=== PATIENT | male | born 1985 | race Caucasian/White ===

== ENCOUNTER 2018-02-14 12:55 | Emergency (ER) | payer BC ==
[2018-02-14 14:41] LABS: Absolute Lymphocytes (CBC) 0.9 K/uL (0.7-4.9); Absolute Monocytes 0.7 K/uL (0.1-1.3); Absolute Neutrophil 12.3 K/uL (1.8-8.0); Basophils % 0.3 % (0-1.3); Hematocrit 45.1 % (39.6-49.0); Lymphocytes % 6.4 % (15.3-44.8); MCH 29.4 pg (27.0-35.0); MCV 81.5 fL (80-100); MPV 8.5 fL (7.6-11.3); Monocytes % 5.1 % (3.3-12.3); RBC Red Blood Cell Count 5.54 M/uL (4.33-5.43)
[2018-02-14 14:42] LABS: Protime INR 1.34
[2018-02-14] MEDS ORDERED: NA CHLORIDE 0.9% 1,000 ML ONE ×2 (14:50→16:36)
[2018-02-14 15:19] LABS: ALT/SGPT 52 U/L (12-78); AST/SGOT 43 U/L (15-37); Albumin 4.4 g/dL (3.4-5.0); Alkaline Phosphatase 54 U/L (45-117); BUN Blood Urea Nitrogen 15 mg/dL (7-18); Bicarbonate 24 mmol/L (21-32); Bilirubin Direct 0.2 mg/dL (0-0.2); Glucose Level 94 mg/dL (74-106); Lipase 110 U/L (73-393); NT PRO-BNP 32 pg/mL (<125); Protein, Total 8.9 g/dL (6.4-8.2); Sodium Level 137 mmol/L (136-145); Troponin (Emerg Dept Use Only) < 0.02 ng/mL (0.0-0.045)
[2018-02-14] MEDS ORDERED: CEFTRIAXONE/SWI 1gm 1 GM/10 ML SYR ONE (15:24)
[2018-02-14] MEDS ORDERED: AZITHROMYCIN 250 MG TAB ONE (15:24)
[2018-02-14 15:32] LABS: Blood Morphology Comment NOT SEEN (NOT SEEN); Platelet Estimate ADEQ; Urine White Blood Cell Casts OK
[2018-02-14 15:36] LABS: Urine Blood NEGATIVE (NEG); Urine Glucose NEGATIVE (NEG); Urine Protein 1+ (NEG); Urine Specific Gravity 1.015 (1.005-1.030); Urine pH >8.5 (5.0-7.0)
--- NOTE | 2018-02-14 16:26 | RAD REPORT ---
EXAM DESCRIPTION: CT - Angio Aorta For Dissection - 02/14/2018 4:08 pm CLINICAL HISTORY: Left-sided chest pain COMPARISON: Chest films same date TECHNIQUE: Dynamically enhanced 3 mm thick images of the chest, abdomen, and upper pelvis were obtai gualberto during administration of approximately 150mL Isovue 370 IV contrast. Sagittal and coronal reconst ruction images were generated using MIP and reviewed. Exam utilizes a protocol to evaluate entire cou rse of the aorta. All CT scans are performed using dose optimization technique as appropriate and may include automated exposure control or mA/KV adjustment according to patient size. FINDINGS: Aorta is normal in diameter with no dissection or other acute aortic findings. Reconstruct ion images show no significant findings. Pulmonary arteries are normal as well. No cardiomegaly, pericardial thickening or pericardial effusio n. No mass or infiltrate in the lung parenchyma. No pleural thickening, pleural effusion or pneumothorax . No abnormal mediastinal or hilar mass or lymphadenopathy seen. No chest wall mass or abnormal axillar y lymphadenopathy. Celiac, SMA and renal arteries show no suspicious findings. Solid abdominal viscera and bowel show no significant findings. No mass or abnormal lymphadenopathy. No free air, free fluid or inflammatory stranding. No urinary bladder abnormality. Liver shows fatty infiltration. 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 Patient has prominent, irregular Schmorl's nodes and endplate changes T8 -L2. Findings are not suspicious for discitis or osteomyelitis. IMPRESSION: Negative CT scan of the aorta. No other acute finding seen. Nonacute findings in the body of the report.
--- NOTE | 2018-02-14 16:53 | ER ---
Nurse's Notes [facility] Name: Miguel Montes Age: 32 yrs Sex: Male : 1985 Arrival Date: 02/14/2018 Time: 12:58 Bed 27 Private MD: Clay Arnett Diagnosis: Fever, unspecified;Chest pain, unspecified;Dyspnea;Acute upper respiratory infection, unspecified Presentation: 02/14 13:20 Presenting complaint: Patient states: left-sided chest pain and left arm tingling that aa5 began last night. Pt appears uncomfortable in triage. Pt reports being seen at urgent care and sent here, reports flu swab was negative. Transition of care: patient was not received from another setting of care. Onset of symptoms was January 2018. Risk Assessment: Do you want to hurt yourself or someone else? Patient reports no desire to harm self or others. Care prior to arrival: None. 13:20 Method Of Arrival: Ambulatory aa5 13:20 Acuity: NAT 3 aa5 14:33 Initial Sepsis Screen: Does the patient meet any 2 criteria? No. Patient's initial tl3 sepsis screen is negative. Does the patient have a suspected source of infection? No. Patient's initial sepsis screen is negative. Triage Assessment: 14:33 General: Appears uncomfortable. tl3 Historical: - Allergies: 13:22 No Known Allergies; aa5 - Home Meds: 13:22 None [Active]; aa5 - PMHx: 13:22 None; aa5 - PSHx: 13:22 ear; aa5 - Immunization history:: Adult Immunizations up to date. - Ebola Screening: : No symptoms or risks identified at this time. - Social history:: Smoking status: unknown. - Family history:: not pertinent. Screenin:00 Abuse screen: Denies threats or abuse. Nutritional screening: No deficits noted. tl3 Tuberculosis screening: No symptoms or risk factors identified. Fall Risk None identified. Assessment: 14:00 General: Appears distressed, uncomfortable, well groomed, well developed, well tl3 nourished, Behavior is cooperative, appropriate for age. Pain: Complains of pain in anterior aspect of right lateral abdomen, posterior aspect of right lateral abdomen, left upper quadrant and left lower quadrant Pain radiates to back Pain began 2 am. Neuro: Level of Consciousness is awake, alert, obeys commands. Cardiovascular: Heart tones S1 S2 Patient's skin is warm and dry. Respiratory: Airway is patent Respiratory effort is even, unlabored, Respiratory pattern is regular, symmetrical, Breath sounds are clear bilaterally. GI: Abdomen is flat, Bowel sounds present X 4 quads. Abdomen is tender to palpation in right upper quadrant and left upper quadrant. : No signs and/or symptoms were reported regarding the genitourinary system. EENT: No signs and/or symptoms were reported regarding the EENT system. Derm: No signs and/or symptoms reported regarding the dermatologic system. 15:26 Reassessment: Patient appears in no apparent distress at this time. No changes from tl3 previously documented assessment. Patient and/or family updated on plan of care and expected duration. Pain level reassessed. Patient is alert, oriented x 3, equal unlabored respirations, skin warm/dry/pink. 18:47 Reassessment: Patient appears in no apparent distress at this time. No changes from tl3 previously documented assessment. Patient and/or family updated on plan of care and expected duration. Pain level reassessed. Patient is alert, oriented x 3, equal unlabored respirations, skin warm/dry/pink. pt had temp on discharge, Dr Bull notified, orders recieved. Vital Signs: 13:22 BP 106 / 85; Pulse 115; Resp 20 S; Temp 99.5(O); Pulse Ox 100% on R/A; aa5 14:00 BP 120 / 71; Pulse 111; Resp 18; Pulse Ox 100% ; tl3 15:26 BP 115 / 76; Pulse 107; Resp 18; Pulse Ox 98% ; tl3 18:47 BP 112 / 77; Pulse 115; Resp 18; Temp 102.6; Pulse Ox 99% on R/A; tl3 ED Course: 12:58 Patient arrived in ED. rg4 12:59 Clay Arnett MD is Private Physician. rg4 13:20 Arm band placed on. aa5 13:21 Triage completed. aa5 13:26 Pedrito Bull MD is Attending Physician. jose raul 13:38 Juliette Rocha, LUCY is Primary Nurse. tl3 14:20 Initial lab(s) drawn, by tx, sent to lab. First set of blood cultures drawn by me, tl3 Second set of blood cultures drawn by me. Patient maintains SpO2 saturation greater than 95% on room air. 14:29 XRAY Chest (1 view) Sent. tl3 14:34 Patient has correct armband on for positive identification. nurse monitoring on. Pulse tl3 ox on. NIBP on. 14:34 No provider procedures requiring assistance completed. Inserted saline lock: 20 gauge tl3 in right antecubital area, using aseptic technique. Blood collected. 14:41 X-ray completed. Portable x-ray completed in exam room. Patient tolerated procedure ag1 well. 14:44 XRAY Chest (1 view) In Process Unspecified. EDMS 15:06 Radiology exam delayed due to lab results not completed at this time. (BUN/Creatinine). vr 15:[address] nj 16:09 CT Aorta for Dissection In Process Unspecified. EDMS 16:51 Clay Arnett MD is Referral Physician. jose raul 17:27 Repeat lab(s) drawn. by me. tm3 18:18 US Abdomen Limited In Process Unspecified. EDMS 18:47 IV discontinued, intact, bleeding controlled, No redness/swelling at site. Pressure tl3 dressing applied. Administered Medications: 14:37 Drug: NS 0.9% 1000 ml Route: IV; Rate: 1 bolus; Site: right antecubital; Delivery: tl3 Primary tubing; 16:29 Follow up: IV Status: Completed infusion; IV Intake: 1000ml tl3 15:09 Drug: Rocephin - (cefTRIAXone) 1 grams Route: IVPB; Infused Over: 5 mins; Site: right tl3 forearm; Delivery: Primary tubing; 15:24 Follow up: IV Status: Completed infusion; IV Intake: 20ml tl3 15:09 Drug: Zithromax 500 mg Route: PO; tl3 15:25 Follow up: Response: No adverse reaction tl3 16:29 Drug: NS 0.9% 1000 ml Route: IV; Rate: 125 ml/hr; Site: right forearm; Delivery: tl3 Primary tubing; 18:20 Follow up: IV Status: Completed infusion; IV Intake: 250ml tl3 17:37 Drug: NS 0.9% 1000 ml Route: IV; Rate: 1 bolus; Site: right forearm; Delivery: Primary tl3 tubing; 18:19 Follow up: IV Status: Completed infusion; IV Intake: 1000ml tl3 17:48 Drug: Pepcid 20 mg Route: IVP; Infused Over: 2 mins; Site: right forearm; tl3 18:19 Follow up: Response: No adverse reaction tl3 17:48 Drug: Aspirin 81 mg Route: PO; tl3 18:19 Follow up: Response: No adverse reaction tl3 18:49 Drug: Motrin 800 mg Route: PO; tl3 18:49 Follow up: Response: Medication administered at discharge. tl3 18:50 Not Given (Patient Refused): Tamiflu 75 mg PO once tl3 Intake: 15:24 IV: 20ml; Total: 20ml. tl3 16:29 IV: 1000ml; Total: 1020ml. tl3 18:19 IV: 1000ml; Total: 2020ml. tl3 18:20 IV: 250ml; Total: 2270ml. tl3 Outcome: 16:52 Discharge ordered by . jose raul 18:54 Discharged to home ambulatory. tl3 18:54 Condition: stable 18:54 Discharge instructions given to patient, family, Instructed on discharge instructions, follow up and referral plans. medication usage, Demonstrated understanding of instructions, follow-up care, medications, Prescriptions given X 4. 18:54 Patient left the ED. tl3 Signatures: Dispatcher [employer] EDMS Issa Joe tm3 Pedrito Bull MD MD cha Calderon, Audri, RN RN [id number] Nori Merchant Ashley ag1 Garcia, Rubi rg4 Pelon Marks Tammy, RN RN tl3
--- NOTE | 2018-02-14 16:53 | EDPHYS ---
Physician Documentation [facility] Name: Miguel Montes Age: 32 yrs Sex: Male : 1985 Arrival Date: 02/14/2018 Time: 12:58 Bed 27 Private MD: Clay Arnett ED Physician Pedrito Bull HPI: 02/14 14:39 This 32 yrs old Male presents to ER via Ambulatory with complaints of Chest jose raul Pain, Breathing Difficulty. 14:39 This 32 yrs old Male presents to ER via Ambulatory with complaints of Chest jose raul Pain, Breathing Difficulty. 14:39 The patient or guardian reports chest pain that is located primarily in the substernal jose raul area, anterior chest wall. The patient or guardian reports chest pain that is located primarily in the epigastric area. The pain does not radiate. Associated signs and symptoms: The patient has no apparent associated signs or symptoms. The chest pain is described as sharp. Duration: The patient or guardian reports a single episode, that is still ongoing, but improving. Modifying factors: The symptoms are alleviated by nothing. the symptoms are aggravated by nothing. Severity of pain: At its worst the pain was mild in the emergency department the pain is unchanged. The patient has not experienced similar symptoms in the past. Historical: - Allergies: 13:22 No Known Allergies; aa5 - Home Meds: 13:22 None [Active]; aa5 - PMHx: 13:22 None; aa5 - PSHx: 13:22 ear; aa5 - Immunization history:: Adult Immunizations up to date. - Ebola Screening: : No symptoms or risks identified at this time. - Social history:: Smoking status: unknown. - Family history:: not pertinent. ROS: 14:39 Constitutional: Negative for fever, chills, and weight loss, Eyes: Negative for injury, jose raul pain, redness, and discharge, ENT: Negative for injury, pain, and discharge, Neck: Negative for injury, pain, and swelling, Respiratory: Negative for shortness of breath, cough, wheezing, and pleuritic chest pain, Back: Negative for injury and pain, : Negative for injury, bleeding, discharge, and swelling, MS/Extremity: Negative for injury and deformity, Skin: Negative for injury, rash, and discoloration, Neuro: Negative for headache, weakness, numbness, tingling, and seizure. 14:39 Cardiovascular: Positive for chest pain. 14:39 Abdomen/GI: Positive for abdominal pain, of the epigastric area, right upper quadrant and left upper quadrant. Exam: 14:39 Constitutional: This is a well developed, well nourished patient who is awake, alert, jose raul and in no acute distress. Head/Face: Normocephalic, atraumatic. Eyes: Pupils equal round and reactive to light, extra-ocular motions intact. Lids and lashes normal. Conjunctiva and sclera are non-icteric and not injected. Cornea within normal limits. Periorbital areas with no swelling, redness, or edema. ENT: Nares patent. No nasal discharge, no septal abnormalities noted. Tympanic membranes are normal and external auditory canals are clear. Oropharynx with no redness, swelling, or masses, exudates, or evidence of obstruction, uvula midline. Mucous membranes moist. Neck: Trachea midline, no thyromegaly or masses palpated, and no cervical lymphadenopathy. Supple, full range of motion without nuchal rigidity, or vertebral point tenderness. No Meningismus. Chest/axilla: Normal chest wall appearance and motion. Nontender with no deformity. No lesions are appreciated. Cardiovascular: Regular rate and rhythm with a normal S1 and S2. No gallops, murmurs, or rubs. Normal PMI, no JVD. No pulse deficits. Respiratory: Lungs have equal breath sounds bilaterally, clear to auscultation and percussion. No rales, rhonchi or wheezes noted. No increased work of breathing, no retractions or nasal flaring. Back: No spinal tenderness. No costovertebral tenderness. Full range of motion. Male : Normal genitalia with no discharge or lesions. Skin: Warm, dry with normal turgor. Normal color with no rashes, no lesions, and no evidence of cellulitis. MS/ Extremity: Pulses equal, no cyanosis. Neurovascular intact. Full, normal range of motion. Neuro: Awake and alert, GCS 15, oriented to person, place, time, and situation. Cranial nerves II-XII grossly intact. Motor strength 5/5 in all extremities. Sensory grossly intact. Cerebellar exam normal. Normal gait. Psych: Awake, alert, with orientation to person, place and time. Behavior, mood, and affect are within normal limits. 14:39 Abdomen/GI: Inspection: abdomen appears normal, Bowel sounds: normal, Palpation: mild abdominal tenderness, in the epigastric area, right upper quadrant and left upper quadrant. 18:46 Neck: ROM/movement: Meningeal signs: are not present, Kernig's sign is negative, jose raul Brudzinski's sign is negative, nuchal rigidity, is not appreciated. Vital Signs: 13:22 BP 106 / 85; Pulse 115; Resp 20 S; Temp 99.5(O); Pulse Ox 100% on R/A; aa5 14:00 BP 120 / 71; Pulse 111; Resp 18; Pulse Ox 100% ; tl3 15:26 BP 115 / 76; Pulse 107; Resp 18; Pulse Ox 98% ; tl3 18:47 BP 112 / 77; Pulse 115; Resp 18; Temp 102.6; Pulse Ox 99% on R/A; tl3 MDM: 13:26 Patient medically screened. [facility] 14:39 Data reviewed: vital signs, nurses notes, lab test result(s), EKG, radiologic studies, [facility] plain films. 02/14 13:32 Order name: Basic Metabolic Panel; Complete Time: 15:29 [facility] 02/14 13:32 Order name: CBC with Diff; Complete Time: 15:33 [facility] 02/14 13:32 Order name: LFT's; Complete Time: 15:29 [facility] 02/14 13:32 Order name: Magnesium; Complete Time: 15:29 [facility] 02/14 13:32 Order name: NT PRO-BNP; Complete Time: 15:29 [facility] 02/14 13:32 Order name: PT-INR; Complete Time: 14:55 [facility] 02/14 13:32 Order name: Troponin (emerg Dept Use Only); Complete Time: 15:29 [facility] 02/14 13:32 Order name: Influenza Screen (a \T\ B); Complete Time: 15:29 [facility] 02/14 13:32 Order name: Blood Culture Adult (2) [facility] 02/14 13:32 Order name: Urine Culture [facility] 02/14 13:32 Order name: Procalcitonin; Complete Time: 15:29 [facility] 02/14 15:05 Order name: Urine Dipstick--Ancillary (enter results); Complete Time: 16:49 eb 02/14 15:13 Order name: Lipase; Complete Time: 15:29 EDMS 02/14 13:32 Order name: XRAY Chest (1 view); Complete Time: 18:42 [facility] 02/14 13:32 Order name: EKG; Complete Time: 13:33 [facility] 02/14 13:32 Order name: Cardiac monitoring; Complete Time: 14:29 [facility] 02/14 14:56 Order name: CT Aorta for Dissection; Complete Time: 16:49 [facility] 02/14 15:16 Order name: CBC Smear Scan; Complete Time: 15:33 [facility] 02/14 16:52 Order name: Troponin (emerg Dept Use Only); Complete Time: 18:42 [facility] 02/14 17:16 Order name: US Abdomen Limited; Complete Time: 18:42 [facility] 02/14 13:32 Order name: EKG - Nurse/Tech; Complete Time: 14:29 [facility] 02/14 13:32 Order name: IV Saline Lock; Complete Time: 14:30 [facility] 02/14 13:32 Order name: Labs collected and sent; Complete Time: 14:30 [facility] 02/14 13:32 Order name: O2 Per Protocol; Complete Time: 14:30 [facility] 02/14 13:32 Order name: O2 Sat Monitoring; Complete Time: 14:30 [facility] 02/14 13:32 Order name: Urine Dipstick-Ancillary (obtain specimen); Complete Time: 16:31 [facility] Administered Medications: 14:37 Drug: NS 0.9% 1000 ml Route: IV; Rate: 1 bolus; Site: right antecubital; Delivery: tl3 Primary tubing; 16:29 Follow up: IV Status: Completed infusion; IV Intake: 1000ml tl3 15:09 Drug: Rocephin - (cefTRIAXone) 1 grams Route: IVPB; Infused Over: 5 mins; Site: right tl3 forearm; Delivery: Primary tubing; 15:24 Follow up: IV Status: Completed infusion; IV Intake: 20ml tl3 15:09 Drug: Zithromax 500 mg Route: PO; tl3 15:25 Follow up: Response: No adverse reaction tl3 16:29 Drug: NS 0.9% 1000 ml Route: IV; Rate: 125 ml/hr; Site: right forearm; Delivery: tl3 Primary tubing; 18:20 Follow up: IV Status: Completed infusion; IV Intake: 250ml tl3 17:37 Drug: NS 0.9% 1000 ml Route: IV; Rate: 1 bolus; Site: right forearm; Delivery: Primary tl3 tubing; 18:19 Follow up: IV Status: Completed infusion; IV Intake: 1000ml tl3 17:48 Drug: Pepcid 20 mg Route: IVP; Infused Over: 2 mins; Site: right forearm; tl3 18:19 Follow up: Response: No adverse reaction tl3 17:48 Drug: Aspirin 81 mg Route: PO; tl3 18:19 Follow up: Response: No adverse reaction tl3 18:49 Drug: Motrin 800 mg Route: PO; tl3 18:49 Follow up: Response: Medication administered at discharge. tl3 18:50 Not Given (Patient Refused): Tamiflu 75 mg PO once tl3 Disposition: 02/14/18 16:52 Discharged to Home. Impression: Fever, unspecified, Chest pain, unspecified, Dyspnea, Acute upper respiratory infection, unspecified. - Condition is Stable. - Discharge Instructions: Nonspecific Chest Pain, Chest Wall Pain, Fever, Adult, Chest Wall Pain, [id number], Nonspecific Chest Pain, [id number], Aspirin and Your Heart. - Prescriptions for Pepcid 20 mg Oral Tablet - take 1 tablet by ORAL route every 12 hours for 10 days; 20 tablet. Zithromax 500 mg Oral Tablet - take 1 tablet by ORAL route once daily for 4 days; 4 tablet. Zofran 4 mg Oral Tablet - take 1 tablet by ORAL route every 12 hours As needed; 20 tablet. Tamiflu 75 mg Oral Capsule - take 1 tablet by ORAL route every 12 hours for 5 days; 10 tablet. - Medication Reconciliation Form, Thank You Letter, Antibiotic Education, Prescription Opioid Use form. - Follow up: Clay Arnett; When: 2 - 3 days; Reason: Recheck today's complaints, Continuance of care, Re-evaluation by your physician. - Problem is new. - Symptoms have improved. Signatures: Dispatcher [employer] [facility] Pedrito Bull MD MD cha Calderon, Audri, RN RN aa5 Juliette Rocha, LUCY RN tl3 Corrections: (The following items were deleted from the chart) 15:15 14:36 LIPASE+C.LAB.BRZ ordered. [facility] 18:54 16:52 02/14/2018 16:52 Discharged to Home. Impression: Fever, unspecified; Chest pain, tl3 unspecified; Dyspnea; Acute upper respiratory infection, unspecified. Condition is Stable. Discharge Instructions: Nonspecific Chest Pain, Chest Wall Pain, Fever, Adult, Chest Wall Pain, [id number], Nonspecific Chest Pain, [id number]-[id number], Aspirin and Your Heart. Prescriptions for Pepcid 20 mg Oral Tablet - take 1 tablet by ORAL route every 12 hours for 10 days; 20 tablet, Zithromax 500 mg Oral Tablet - take 1 tablet by ORAL route once daily for 4 days; 4 tablet. and Forms are Medication Reconciliation Form, Thank You Letter, Antibiotic Education, Prescription Opioid Use. Follow up: Clay Arnett; When: 2 - 3 days; Reason: Recheck today's complaints, Continuance of care, Re-evaluation by your physician. Problem is new. Symptoms have improved. jose raul
[2018-02-14] MEDS ORDERED: ONDANSETRON 4 MG/2 ML VIAL ONE (17:39)
[2018-02-14] MEDS ORDERED: ASPIRIN 81 MG CHEWABLE TABLET ONE (17:49)
[2018-02-14] MEDS ORDERED: FAMOTIDINE 20 MG/2 ML VIAL IV ONE (17:49)
--- NOTE | 2018-02-14 17:56 | RAD REPORT ---
EXAM DESCRIPTION: RAD - Chest Single View - 02/14/2018 2:47 pm CLINICAL HISTORY: Left-sided chest pain COMPARISON: September 2012 TECHNIQUE: AP portable chest image was obtained 1442 hours . FINDINGS: Lung volumes are low. No focal lung parenchymal process. Heart and vasculature are normal. No measurable pleural effusion and no pneumothorax. No acute bony abnormality seen. No acute aortic findings suspected. IMPRESSION: No acute cardiopulmonary process. No suspicious interval change.
--- NOTE | 2018-02-14 18:39 | RAD REPORT ---
EXAM DESCRIPTION: US - Abdomen Exam Limited - 02/14/2018 6:18 pm CLINICAL HISTORY: Abdominal pain COMPARISON: None. FINDINGS: No gallstones, sludge or other abnormalities within the gallbladder lumen. There is no wal l thickening or pericholecystic fluid. No common duct stone or biliary tree dilatation identified. IMPRESSION: Normal gallbladder and biliary tree ultrasound.
[2018-02-14] MEDS ORDERED: IBUPROFEN 400 MG TAB ONE (18:49)
--- NOTE | 2018-02-15 07:03 | EKG ---
Test Date: 2018-02-14 Test Time: 13:26:54 Financial Services Associate: TM MEASUREMENT RESULTS: Intervals: Rate: 102 VA: 178 QRSD: 94 QT: 302 QTc: 393 [place]: P: 33 VA: 178 QRS: 25 T: 27 INTERPRETIVE STATEMENTS: Sinus tachycardia Possible Left atrial enlargement Borderline ECG No previous ECG available for comparison Electronically Signed On 02-15-18 07:02:40 COMPUTER CUSTOMER SUPPORT SPECIALIST by Shaun Miller
== END 2018-02-14 18:54 | disposition home or self-care (01) ==
LOC: ER 12:55
DX: J06.9 Acute upper respiratory infection, unspecified (principal); R50.9 Fever, unspecified; R06.00 Dyspnea, unspecified
CPT/HCPCS: 36415; 71045; 71275; 74175; 76705; 80048; 80076; 81003; 83690; 83735; 83880; 84145; 84484; 85025; 85610; 87040; 87086; 87088; 87804; 93005; 96361; 96374; 96375; 99285; J0696; J2405; J7030; Q9967

== ENCOUNTER 2021-07-12 09:54 | Emergency (ER) | payer BC ==
--- OUTSIDE RECORDS SUMMARY | 2021-07-12 09:56 | XMS REPORT | Continuity of Care Document ---
:1985 Author Organization [facility] t Address [address] [place] [address] Dr. Peñaloza [address] [place] [id number] Care Team Providers Name Role Phone Jaylon DELGADILLO Attending Clinician Unavailable Payers Payer Name Policy Type Policy Number Effective Date Expiration Date Charlette HENDRICKS II [id number] 2019 00:00:00 Problems This patient has no known problems. Allergies, Adverse Reactions, Alerts Allergy Allergy Status Severity Reaction(s) Onset Inactive Treating Comm ents Source Name Type Date Date Clinician NO KNOWN Drug Active [facility] ALLERGIE Class [facility] Medications This patient has no known medications. Procedures This patient has no known procedures. Encounters Start End Encounter Admission Attending Care Care Encounter Source Date/Time Date/Time Type Type Clinicians Facility Department ID 2020-04-12 2020-04-12 Outpatient Pedro Pablo DELGADILLO [facility] [id number] [id number] [facility] 08:00:00 08:00:00 [place] [id number] [facility] 2020-04-12 2020-04-12 Outpatient Pedro Pablo DELGADILLO [facility] [id number] [facility] 08:00:00 08:00:00 [place] [facility] 2020-04-08 2020-04-08 Outpatient Pedro Pablo DELGADILLO [facility] [id number] [facility] 10:10:00 10:10:00 [place] [facility] 2020-04-08 2020-04-08 Outpatient Pedro Pablo DELGADILLO [facility] [id number] [id number] Univers 08:00:00 08:00:00 [place] [id number] [facility] 2020-04-08 2020-04-08 Outpatient Pedro Pablo DELGADILLO [facility] [id number] [facility] 08:00:00 08:00:00 [place] [facility] 2020-03-16 2020-03-16 Outpatient Pedro Pablo DELGADILLO [facility] [id number] [facility] 14:40:00 14:40:00 [place] [facility] Results This patient has no known results.
[2021-07-12] MEDS ORDERED: ONDANSETRON 4 MG/2 ML VIAL ONE (11:00)
[2021-07-12 11:01] LABS: Absolute Lymphocytes (CBC) 0.9 K/uL (0.7-4.9); Lymphocytes % 9.5 % (15.3-44.8); MPV 7.9 fL (7.6-11.3)
[2021-07-12] MEDS ORDERED: NA CHLORIDE 0.9% 1,000 ML ONE (11:01)
[2021-07-12] MEDS ORDERED: KETOROLAC 30 MG/ML INJ ONE (11:01)
[2021-07-12 11:14] LABS: Albumin 3.9 g/dL (3.4-5.0); Bilirubin Total 0.7 mg/dL (0.2-1.0); Potassium 3.9 mmol/L (3.5-5.1); Protein, Total 7.6 g/dL (6.4-8.2)
--- NOTE | 2021-07-12 11:15 | RAD REPORT ---
EXAM DESCRIPTION: CTAbdomen Pelvis Wo Contrast - 07/12/2021 11:06 am CLINICAL HISTORY: Flank pain, kidney stone suspected COMPARISON: No comparisons TECHNIQUE: CT of the abdomen and pelvis was performed. All CT scans are performed using dose optimization technique as appropriate and may include automated exposure control or mA/KV adjustment according to patient size. FINDINGS: Lower chest: No acute abnormality. Liver: No acute abnormality or suspicious lesions. Biliary: No biliary ductal dilatation. Stomach: No significant focal abnormality. Duodenum: No significant focal abnormality. Pancreas: No significant abnormality. Spleen: No significant abnormality. Adrenal: No suspicious lesions. Kidney/ureter: 4 mm stone at the right UPJ with mild right-sided hydronephrosis. Left upper pole eva l lesion which is likely a cyst. Retroperitoneum: No retroperitoneal adenopathy. Vascular: No aneurysm. Bowel: No significant focal abnormality. Normal appendix. Peritoneum: No ascites or free air. Small fat containing inguinal hernias. Bladder: Grossly unremarkable. Reproductive: No adnexal masses. Bones: No acute fracture. Other: n/a IMPRESSION: Mild right-sided hydronephrosis secondary to a 4 mm stone at the right UPJ.
--- NOTE | 2021-07-12 11:25 | ER ---
Nurse's Notes [facility] Name: Miguel Montes Age: 35 yrs Sex: Male : 1985 Arrival Date: 07/12/2021 Time: 09:55 Bed 10 Private MD: Clay Arnett Diagnosis: Hydronephrosis with renal and ureteral calculous obstruction Presentation: 07/12 10:28 Chief complaint: Patient states: right flank pain started this morning, +nausea, iw vomited once , had blood in his urine last week but has resolved. Coronavirus screen: At this time, the client does not indicate any symptoms associated with coronavirus-19. Ebola Screen: Patient negative for fever greater than or equal to 101.5 degrees Fahrenheit, and additional compatible Ebola Virus Disease symptoms Patient denies exposure to infectious person. Patient denies travel to an Ebola-affected area in the 21 days before illness onset. No symptoms or risks identified at this time. Initial Sepsis Screen: Does the patient meet any 2 criteria? No. Patient's initial sepsis screen is negative. Does the patient have a suspected source of infection? No. Patient's initial sepsis screen is negative. Risk Assessment: Do you want to hurt yourself or someone else? Patient reports no desire to harm self or others. Onset of symptoms was July 12, 2021. 10:28 Method Of Arrival: Ambulatory iw 10:28 Acuity: NAT 3 iw Historical: - Allergies: 10:29 No Known Allergies; iw - Home Meds: 10:29 None [Active]; iw - PMHx: 10:29 None; iw - PSHx: 10:29 ear; iw - Immunization history:: Client reports receiving the 2nd dose of the Covid vaccine. - Social history:: Smoking status: Patient denies any tobacco usage or history of. Screenin:30 Abuse screen: Denies threats or abuse. Denies injuries from another. Nutritional ab2 screening: No deficits noted. Tuberculosis screening: No symptoms or risk factors identified. Fall Risk None identified. Assessment: 11:29 General: Appears in no apparent distress. uncomfortable, Behavior is calm, cooperative, ab2 appropriate for age. Pain: Complains of pain in mid back area Pain currently is 7 out of 10 on a pain scale. Neuro: Level of Consciousness is awake, alert, obeys commands, Oriented to person, place, time, situation, Appropriate for age Decontamination Worker are equal bilaterally Moves all extremities. Gait is steady, Speech is normal, Facial symmetry appears normal. Cardiovascular: No deficits noted. Denies chest pain, shortness of breath, Heart tones S1 S2 present Patient's skin is warm and dry. Respiratory: No deficits noted. Airway is patent Respiratory effort is even, unlabored, Respiratory pattern is regular, symmetrical, Breath sounds are clear bilaterally. GI: No deficits noted. GI: Reports nausea, vomiting. : Reports pain flank(s). Vital Signs: 10:28 BP 122 / 76; Pulse 78; Resp 16; Temp 98.0; Pulse Ox 98% on R/A; Weight 92.99 kg; Height iw 5 ft. 8 in. (172.72 cm); Pain 7/10; 12:06 BP 133 / 79; Pulse 71; Resp 17; Pulse Ox 100% on R/A; ab2 10:28 Body Mass Index 31.17 (92.99 kg, 172.72 cm) iw ED Course: 09:55 Patient arrived in ED. am2 09:55 Clay Arnett MD is Private Physician. am2 10:12 Heriberto Alvarez FNP-C is [facility]. la1 10:12 Pedrito Bull MD is Attending Physician. la1 10:24 Socrates Ignacio is Primary Nurse. ab2 10:29 Triage completed. iw 10:29 Arm band placed on. iw 10:53 Initial lab(s) drawn, by ri, sent to lab. Inserted saline lock: 20 gauge in right em1 wrist, using aseptic technique. Blood collected. 11:08 CT Abd/Pelvis - Without Contrast In Process Unspecified. EDMS 11:24 Evan Hunter MD is Referral Physician. la1 11:31 Patient has correct armband on for positive identification. Bed in low position. Call ab2 light in reach. Side rails up X2. 11:31 No provider procedures requiring assistance completed. ab2 12:06 IV discontinued, intact, bleeding controlled, No redness/swelling at site. Pressure ab2 dressing applied. Administered Medications: 10:59 Drug: Zofran (Ondansetron) 4 mg Route: IVP; Site: right forearm; ab2 11:31 Follow up: Response: No adverse reaction ab2 11:00 Drug: NS 0.9% 1000 ml Route: IV; Rate: 1 bolus; Site: right forearm; ab2 11:31 Follow up: Response: No adverse reaction; IV Status: Completed infusion ab2 11:00 Drug: Ketorolac 15 mg Route: IVP; Site: right forearm; ab2 11:31 Follow up: Response: No adverse reaction ab2 11:45 Drug: Flomax (tamsulosin) 0.4 mg Route: PO; ab2 11:45 Follow up: Response: No adverse reaction ab2 Outcome: 11:24 Discharge ordered by . la1 12:06 Discharged to home ambulatory. ab2 12:06 Condition: good 12:06 Discharge instructions given to patient, Instructed on discharge instructions, follow up and referral plans. medication usage, Demonstrated understanding of instructions, follow-up care, medications, Prescriptions given X 3. 12:07 Patient left the ED. ab2 Signatures: Dispatcher [employer] Angelia Perales RN RN iw Martinez, Eric em1 Heriberto Alvarez, WORKERS COMPENSATION EXAMINER-C WORKERS COMPENSATION EXAMINER-Sonia1 Saranya Tolentino am2 Socrates Ignacio ab2
--- NOTE | 2021-07-12 11:25 | EDPHYS ---
Physician Documentation [facility] Name: Miguel Montes Age: 35 yrs Sex: Male : 1985 Arrival Date: 07/12/2021 Time: 09:55 Bed 10 Private MD: Clay Arnett ED Physician Pedrito Bull HPI: 07/12 10:48 This 35 yrs old Male presents to ER via Ambulatory with complaints of Flank Pain, Low la1 Back Pain. 10:48 The patient complains of pain in the mid back area. The pain radiates to the abdomen. la1 Onset: The symptoms/episode began/occurred this morning. Modifying factors: The symptoms are alleviated by nothing. the symptoms are aggravated by nothing. Associated signs and symptoms: Pertinent positives: hematuria. Severity of pain: At its worst the pain was severe in the emergency department the pain has improved. The patient has not experienced similar symptoms in the past. Historical: - Allergies: 10:29 No Known Allergies; iw - Home Meds: 10:29 None [Active]; iw - PMHx: 10:29 None; iw - PSHx: 10:29 ear; iw - Immunization history:: Client reports receiving the 2nd dose of the Covid vaccine. - Social history:: Smoking status: Patient denies any tobacco usage or history of. ROS: 10:49 Constitutional: Negative for fever, chills, and weight loss, Eyes: Negative for injury, la1 pain, redness, and discharge, Cardiovascular: Negative for chest pain, palpitations, and edema, Respiratory: Negative for shortness of breath, cough, wheezing, and pleuritic chest pain, MS/Extremity: Negative for injury and deformity, Skin: Negative for injury, rash, and discoloration, Neuro: Negative for headache, weakness, numbness, tingling, and seizure. 10:49 Abdomen/GI: Positive for abdominal pain, nausea, flank pain. 10:49 : Positive for hematuria. Exam: 10:50 Constitutional: This is a well developed, well nourished patient who is awake, alert, la1 and in no acute distress. Head/Face: Normocephalic, atraumatic. Eyes: Pupils equal round and reactive to light, extra-ocular motions intact. ENT: Nares patent. No nasal discharge, no septal abnormalities noted. Chest/axilla: Normal chest wall appearance and motion. Cardiovascular: Regular rate and rhythm with a normal S1 and S2. No gallops, murmurs, or rubs. Normal PMI, no JVD. No pulse deficits. Respiratory: Lungs have equal breath sounds bilaterally, clear to auscultation and percussion Abdomen/GI: Soft, non-tender, with normal bowel sounds. No distension or tympany. No guarding or rebound. No evidence of tenderness throughout. Back: No spinal tenderness. No costovertebral tenderness. Full range of motion. MS/ Extremity: Pulses equal, no cyanosis. Neurovascular intact. Full, normal range of motion. Vital Signs: 10:28 BP 122 / 76; Pulse 78; Resp 16; Temp 98.0; Pulse Ox 98% on R/A; Weight 92.99 kg; Height iw 5 ft. 8 in. (172.72 cm); Pain 7/10; 12:06 BP 133 / 79; Pulse 71; Resp 17; Pulse Ox 100% on R/A; ab2 10:28 Body Mass Index 31.17 (92.99 kg, 172.72 cm) iw MDM: 10:25 Patient medically screened. jose raul 11:23 Data reviewed: vital signs, nurses notes, lab test result(s), radiologic studies, and la1 as a result, I will discharge patient. Data interpreted: Pulse oximetry: on room air is 98 %. Interpretation: normal. Counseling: I had a detailed discussion with the patient and/or guardian regarding: the historical points, exam findings, and any diagnostic results supporting the discharge/admit diagnosis, lab results, radiology results, the need for outpatient follow up, a urologist, to return to the emergency department if symptoms worsen or persist or if there are any questions or concerns that arise at home. Response to treatment: the patient's symptoms have markedly improved after treatment, patient is well hydrated. and as a result, I will discharge patient. 07/12 10:38 Order name: CBC with Diff la1 07/12 10:38 Order name: CMP; Complete Time: 11:17 la1 07/12 10:38 Order name: Lipase; Complete Time: 11:17 la1 07/12 10:38 Order name: CT Abd/Pelvis - Without Contrast; Complete Time: 11: la1 07/12 12:06 Order name: CBC Smear Scan EDMS 07/12 10:38 Order name: IV Saline Lock; Complete Time: 10:53 la1 07/12 10:38 Order name: Labs collected and sent; Complete Time: 10:53 la1 Administered Medications: 10:59 Drug: Zofran (Ondansetron) 4 mg Route: IVP; Site: right forearm; ab2 11:31 Follow up: Response: No adverse reaction ab2 11:00 Drug: NS 0.9% 1000 ml Route: IV; Rate: 1 bolus; Site: right forearm; ab2 11:31 Follow up: Response: No adverse reaction; IV Status: Completed infusion ab2 11:00 Drug: Ketorolac 15 mg Route: IVP; Site: right forearm; ab2 11:31 Follow up: Response: No adverse reaction ab2 11:45 Drug: Flomax (tamsulosin) 0.4 mg Route: PO; ab2 11:45 Follow up: Response: No adverse reaction ab2 Disposition Summary: 07/12/21 11:24 Discharge Ordered Location: Home la1 Problem: new la1 Symptoms: have improved la1 Condition: Stable la1 Diagnosis - Hydronephrosis with renal and ureteral calculous obstruction la1 Followup: la1 - With: Evan Hunter MD - When: 2 - 3 days - Reason: Recheck today's complaints, Re-evaluation by your physician Followup: la1 - With: Emergency Department - When: As needed - Reason: Fever > 102 F, Worsening of condition Discharge Instructions: - Discharge Summary Sheet la1 - Kidney Stones la1 - Kidney Stones, [id number] la1 - Dietary Guidelines to Help Prevent Kidney Stones la1 Forms: - Medication Reconciliation Form la1 - Thank You Letter la1 - Prescription Opioid Use la1 Prescriptions: - Flomax 0.4 mg Oral capsule - take 1 capsule by ORAL route once daily 1/2 hour following the same meal each la1 day; 14 capsule; Refills: 0, Product Selection Permitted - Zofran 4 mg Oral Tablet - take 1 tablet by ORAL route every 12 hours As needed; 20 tablet; Refills: 0, la1 Product Selection Permitted - Tylenol-Codeine #3 300 mg-30 mg Oral - take 1 tablet by ORAL route 4 times per day; 16 tablet; Refills: 0, Product la1 Selection Permitted Addendum: 07/14/2021 07:46 Co-signature as Attending Physician, Pedrito andino gore Signatures: Dispatcher [employer] Pedrito Thorne MD MD cha Williams, Irene, RN RN Heriberto Bautista, COMMUNITY LEADER-C COMMUNITY LEADER-Cla1 Socrates Ignacio
[2021-07-12] MEDS ORDERED: TAMSULOSIN 0.4 MG SR CAP ONE (11:36)
[2021-07-12 12:05] LABS: Blood Morphology Comment NOT SEEN (NOT SEEN); Platelet Estimate ADEQ; White Blood Cell Scan OK (OK)
[2021-07-12 16:46] VITALS: TEMP 98
[2021-07-12 16:48] VITALS: BP 133/79; O2SAT 100
== END 2021-07-12 12:07 | disposition home or self-care (01) ==
LOC: ER 09:54
DX: N13.2 Hydronephrosis with renal and ureteral calculous obstruction (principal); R31.9 Hematuria, unspecified
CPT/HCPCS: 96361; 85025; 36415; 83690; 80053; 74176; 96375; 96374; 99284; J7030; J2405

== ENCOUNTER 2022-03-16 17:12 | Emergency (ER) | payer BC ==
[2022-03-16] MEDS ORDERED: KETOROLAC 30 MG/ML INJ ONE (17:40)
[2022-03-16 18:01] LABS: Absolute Lymphocytes (CBC) 1.1 K/uL (0.7-4.9); Hematocrit 45.1 % (39.6-49.0); Lymphocytes % 9.5 % (15.3-44.8); MCV 82.4 fL (80-100); MPV 7.4 fL (7.6-11.3); RBC Red Blood Cell Count 5.48 M/uL (4.33-5.43)
--- OUTSIDE RECORDS SUMMARY | 2022-03-16 18:02 | XMS REPORT | Continuity of Care Document ---
:1985 Author Organization [facility] Address [address] [place] [address] [address] [place] [address] Care Team Providers Name Role Phone Saravanan_Tiffany Attending Clinician Unavailable Efrain Coe Attending Clinician [phone] HAWA DELGADILLO Attending Clinician Unavailable ARNOL ARREDONDO Attending Clinician Unavailable Devon Admitting Clinician Unavailable Payers Payer Name Policy Type Policy Number Effective Date Expiration Date S nick [place] [id number] 2021 [place] DIRECT 00:00:00 (PPO) CIGNA II [id number] 2019 00:00:00 Problems Condition Condition Condition Status Onset Resolution Last Treating Co mments Source Name Details Category Date Date Treatment Clinician Date Kidney Kidney Problem Active [place] [facility] 4-28 [facility] 00:00: U[facility] 00 Allergies, Adverse Reactions, Alerts Allergy Allergy Status Severity Reaction(s) Onset Inactive Treating Comm ents Source Name Type Date Date Clinician NO KNOWN Drug Active [facility]ERGIE [facility] Social History Smoking Status Start Date Stop Date Source Never Smoker [place] [facility] Medications Ordered Filled Start Stop Current Ordering Indication Dosage Frequency Signature Comments Components Source Medication Medication Date Date Medication? Clinician (SIG) Name Name acetaminoph acetaminoph No acetaminop [place] en 300 en 300 hen 300 [facility] mg-codeine mg-codeine mg-codeine U[facility] 30 mg 30 mg 30 mg tablet TAKE tablet TAKE tablet 1 TABLET BY 1 TABLET BY TAKE 1 MOUTH 4 MOUTH 4 TABLET BY TIMES A DAY TIMES A DAY MOUTH 4 NEEDED NEEDED TIMES A FOR PAIN FOR PAIN DAY NEEDED FOR PAIN Flomax 0.4 Flomax 0.4 No 1capsul Q1D Flomax 0.4 [facility] mg capsule mg capsule e(s) mg capsule [facility] Take 1 Take 1 Take 1 Urology capsule capsule capsule every day every day every day by oral by oral by oral route. route. route. ondansetron ondansetron No ondansetro [facility] HCl 4 mg HCl 4 mg n HCl 4 mg M etro tablet TAKE tablet TAKE tablet Urology 1 TABLET BY 1 TABLET BY TAKE 1 MOUTH EVERY MOUTH EVERY TABLET BY 12 HOURS 12 HOURS MOUTH NEEDED NEEDED EVERY 12 HOURS NEEDED acetaminoph acetaminoph No acetaminop [facility] en 300 en 300 hen 300 [facility] mg-codeine mg-codeine mg-codeine U[facility] 30 mg 30 mg 30 mg tablet TAKE tablet TAKE tablet 1 TABLET BY 1 TABLET BY TAKE 1 MOUTH 4 MOUTH 4 TABLET BY TIMES A DAY TIMES A DAY MOUTH 4 NEEDED NEEDED TIMES A FOR PAIN FOR PAIN DAY NEEDED FOR PAIN ondansetron ondansetron No ondansetro [facility] HCl 4 mg HCl 4 mg n HCl 4 mg M etro tablet TAKE tablet TAKE tablet Urology 1 TABLET BY 1 TABLET BY TAKE 1 MOUTH EVERY MOUTH EVERY TABLET BY 12 HOURS 12 HOURS MOUTH NEEDED NEEDED EVERY 12 HOURS NEEDED tamsulosin tamsulosin No tamsulosin [facility] 0.4 mg 0.4 mg 0.4 mg [facility] capsule capsule capsule Urolog y TAKE 1 TAKE 1 TAKE 1 CAPSULE BY CAPSULE BY CAPSULE BY MOUTH EVERY MOUTH EVERY MOUTH DAY DAY EVERY DAY Immunizations Ordered Immunization Filled Immunization Date Status Commen Source Name Name COVID-19, mRNA, COVID-19, mRNA, 2020-03-25 Completed [place] [facility] LNP-S, PF, 100 LNP-S, PF, 100 00:00:00 Urolog y mcg/0.5 mL dose mcg/0.5 mL dose (Moderna) (Moderna) COVID-19, mRNA, COVID-19, mRNA, 2020-03-25 Completed [place] [facility] LNP-S, PF, 100 LNP-S, PF, 100 00:00:00 Urolog y mcg/0.5 mL dose mcg/0.5 mL dose (Moderna) (Moderna) COVID-19, mRNA, COVID-19, mRNA, 2020-03-25 Completed [place] [facility] LNP-S, PF, 100 LNP-S, PF, 100 00:00:00 Urolog y mcg/0.5 mL dose mcg/0.5 mL dose (Moderna) (Moderna) COVID-19, mRNA, COVID-19, mRNA, 2020-03-25 Completed [place] [facility] LNP-S, PF, 100 LNP-S, PF, 100 00:00:00 Urolog y mcg/0.5 mL dose mcg/0.5 mL dose (Moderna) (Moderna) Vital Signs Vital Name Observation Time Observation Value Comments Source Height 2022-02-12 00:00:00 69 [in_i] [facility] BMI (Body Mass 2022-02-12 00:00:00 30.3 kg/m2 [place] [facility] Index) [facility] Body Weight 2022-02-12 00:00:00 205 [lb_av] [facility] Height 2022-02-07 00:00:00 69 [in_i] [facility] BMI (Body Mass 2022-02-07 00:00:00 30.3 kg/m2 [place] [facility] Index) [facility] Body Weight 2022-02-07 00:00:00 205 [lb_av] [facility] BP Diastolic 2021-07-20 00:00:00 94 mm[Hg] [facility] Height 2021-07-20 00:00:00 69 [in_i] [facility] BMI (Body Mass 2021-07-20 00:00:00 30.3 kg/m2 [place] [facility] Index) [facility] BP Systolic 2021-07-20 00:00:00 140 mm[Hg] [facility] Body Weight 2021-07-20 00:00:00 205 [lb_av] [facility] Procedures Procedure Date / Time Performed Performing Clinician Sourc e NM, kidney scan, w/ 2022-02-07 00:00:00 [facility] vascular flow + Urology function, single, w/o pharma intervention US, renal 2022-01-31 00:00:00 Simon [facility] Diagnostic Colonoscopy 2010-03-25 00:00:00 [facility] Plan of Care Planned Activity Planned Date Details Comments Source Diagnostic Test 2022-02-07 urinalysis, Simon huitron Pending 00:00:00 dipstick [code = Urology urinalysis, dipstick] Encounters Start End Encounter Admission Attending Care Care Encounter Source Date/Time Date/Time Type Type Clinicians Facility Department ID 2022-02-23 2022-02-23 Outpatient [facility] [address] [place] 00:00:00 00:00:00 [id number] [facility] 2022-02-23 2022-02-23 Outpatient [facility] [place] 00:00:00 00:00:00 [id number] [facility] 2022-02-12 2022-02-12 Outpatient [facility] [address] [place] 00:00:00 00:00:00 [id number] [facility] 2022-02-12 2022-02-12 Efrain [facility] [place] - [id number] [facility] 00:00:00 00:00:00 Alicia Mcdaniel: [address] [address] , Ph. 2022-02-07 2022-02-07 Outpatient [facility] [address] [place] 00:00:00 00:00:00 [id number] [facility] 2022-02-07 2022-02-07 Efrain [facility] [place] - [id number] [facility] 00:00:00 00:00:00 Alicia Mcdaniel: [address], [place] [address] , Ph. 2022-02-06 2022-02-06 Outpatient [facility] [address] [place] 00:00:00 00:00:00 [id number] [facility] 2022-01-25 2022-01-25 Outpatient [facility] [address] [place] 00:00:00 00:00:00 [id number] [facility] 2021-09-08 2021-09-08 Outpatient [facility] [address] [place] 11:42:00 11:42:00 [id number] [facility] 2021-09-04 2021-09-04 Outpatient [facility] [address] [place] 08:24:00 08:24:00 [id number] [facility] 2021-09-01 2021-09-01 Outpatient [facility] [address] [place] 10:01:00 10:01:00 [id number] [facility] 2021-08-31 2021-08-31 Outpatient [facility]D [facility] [address] [place] 11:47:00 11:47:00 [id number] [facility] 2021-08-30 2021-08-30 Outpatient [facility] [address] [place] 03:57:00 03:57:00 [id number] [facility] 2021-08-23 2021-08-23 Outpatient [facility] [address] [place] 03:06:00 03:06:00 [id number] [facility] 2021-08-23 2021-08-23 Outpatient Saravanan, [facility] [id number] 00:00:00 00:00:00 Efrain Rehman [id number] 2021-08-23 2021-08-23 Efrain [facility] [place] - [id number] [facility] 00:00:00 00:00:00 Oriely Coe [facility] MD: [id number], [place] [address] , Ph. 2021-07-26 2021-07-26 Outpatient [facility] [address] [place] 11:33:00 11:33:00 [facility] 2021-07-26 2021-07-26 Outpatient [facility]D [facility] [address] [place] 11:33:00 11:33:00 [facility] 2021-07-20 2021-07-20 Outpatient [facility] [address] [place] 10:57:00 10:57:00 [id number] [facility] 2021-07-20 2021-07-20 Outpatient Saravanan, [facility] [id number] 00:00:00 00:00:00 Efrain Rehman [id number] 2021-07-20 2021-07-20 Efrain [facility] [place] - [id number] Jett fernandez 00:00:00 00:00:00 OriAlicia Martinez y : [address], [place] [address] , Ph. 2021-07-19 2021-07-19 Outpatient [facility] [address] [place] 02:42:00 02:42:00 [facility] 2021-07-18 2021-07-18 Outpatient [facility] [address] [place] 08:32:00 08:32:00 [facility] 2021-07-17 2021-07-17 Outpatient [facility] [address] [place] 01:44:00 01:44:00 [facility] 2020-04-12 2020-04-12 Outpatient Pedro Pablo DELGADILLO [facility] [id number] [facility] 08:00:00 08:00:00 HAWA [id number] [facility] 2020-04-12 2020-04-12 Outpatient Pedro Pablo DELGADILLO [facility] [id number] [facility] 08:00:00 08:00:00 [place] [facility] 2020-04-08 2020-04-08 Outpatient Pedro Pablo DELGADILLO [facility] [id number] [facility] 10:10:00 10:10:00 HA[place] [facility] 2020-04-08 2020-04-08 Outpatient Pedro Pablo DELGADILLO [facility] [id number] [facility] 08:00:00 08:00:00 HAWA [id number] [facility] 2020-04-08 2020-04-08 Outpatient Pedro Pablo DELGADILLO [facility] [id number] [facility] 08:00:00 08:00:00 [place] ity [facility] 2020-03-16 2020-03-16 Outpatient Pedro Pablo DELGADILLO [facility] [id number] [facility] 14:40:00 14:40:00 [place] ahumada [facility] 2004-08-07 2004-08-07 Outpatient MARIO ARREDONDO [facility] [id number] 12:25:00 12:25:00 ARNOL [id number] [facility] Results This patient has no known results.
[2022-03-16 18:14] LABS: Potassium 3.5 mmol/L (3.5-5.1)
[2022-03-16] MEDS ORDERED: NA CHLORIDE 0.9% 1,000 ML ONE (18:20)
--- NOTE | 2022-03-16 18:20 | RAD REPORT ---
EXAM DESCRIPTION: CT - Abdomen Pelvis Wo Contrast - 03/16/2022 6:00 pm CLINICAL HISTORY: Right flank pain s/p stent Procedure performed March 14 COMPARISON: Abdomen Pelvis Wo Contrast dated 07/12/2021 TECHNIQUE: Axial [address] imaging of the abdomen and pelvis was performed without IV contrast. No IV contrast was given because of allergy, abnormal renal function, patient refusal or physician re quest. Oral contrast was given. All CT scans are performed using dose optimization technique as appropriate and may include automated exposure control or mA/KV adjustment according to patient size. FINDINGS: No suspicious findings in the lung bases. Liver shows fatty infiltration pattern. No acute liver finding on noncontrast imaging. Spleen and sawyer creas show no suspicious findings. Small accessory splenic nodule is present. Gallbladder and biliary tree are also without suspicious finding. Gallstones can be occult. Double pigtail stent has been placed into the right collecting system. The proximal pigtail encircles the UPJ calculus with the pigtail curled at the UPJ. Dilation of the right-sided pelvis and calices has increased since the June comparison study. No recent preprocedure study is available to determin e if this as an acute change. Distal portion the pigtail is well positioned. Small amount of air in a calyx in the upper pole is not unexpected given the procedure performed. There is fluid and strandin g along the pararenal fascia extending along the right colic gutter into the right lower quadrant. No left-sided hydronephrosis. No left-sided calculi. No significant adrenal finding. Isodense renal masses and pyelonephritis cannot be excluded in the absence of IV contrast. The urinary bladder is wi thout significant finding. No acute bowel finding. No peritoneal free air or free fluid. No hernia, mass or bulky lymphadenopat hy. No suspicious bony findings. IMPRESSION: Double pigtail stent in place in the right collecting system. Proximal pigtail is near t he UPJ where there is a small 5 mm stone. Dilation of the right renal pelvis and calices is more prominent than seen on the June study. Madelyn welsh, there is no recent pre stent placement CT available for comparison. Fluid and stranding are seen along the right pararenal fascia into the right lower quadrant. As previ ously noted, there is no recent comparison to determine if this is an acute post stent placement proc ess. Full assessment is limited is the absence of IV contrast.
--- NOTE | 2022-03-16 18:44 | EDPHYS ---
Physician Documentation [facility] Name: Miguel Montes Age: 36 yrs Sex: Male : 1985 Arrival Date: 03/16/2022 Time: 17:14 Bed 8 Private MD: Clay Arnett; Efrain Coe ED Physician Zay Ferreira HPI: 03/16 17:22 This 36 yrs old Male presents to ER via Unassigned with complaints of Flank Pain - ms3 ureter stent 03/14. 17:22 The patient complains of pain in the right mid back. The pain does not radiate. Onset: ms3 The symptoms/episode began/occurred 2 day(s) ago. Modifying factors: The symptoms are alleviated by nothing. the symptoms are aggravated by nothing. Associated signs and symptoms: The patient has no apparent associated signs or symptoms. Severity of pain: At its worst the pain was severe in the emergency department the pain is unchanged is a 8 / 10. Historical: - Allergies: 17:51 No Known Allergies; kb3 - Home Meds: 17:51 None [Active]; kb3 - PMHx: 17:51 Kidney stone; kb3 - PSHx: 17:51 ear; Right uretal stent; kb3 - Immunization history:: Adult Immunizations up to date, Client reports receiving the 2nd dose of the Covid vaccine, Last tetanus immunization: up to date. - Social history:: Smoking status: Patient denies any tobacco usage or history of. ROS: 17:22 Constitutional: Negative for fever, and chills. Neck: Negative for injury, pain, and ms3 swelling, Cardiovascular: Negative for chest pain, and palpitations. Respiratory: Negative for shortness of breath, cough, wheezing, and pleuritic chest pain, Abdomen/GI: Negative for abdominal pain, nausea, vomiting, diarrhea, and constipation. 17:22 Back: Positive for flank pain, on the right. 17:22 All other systems are negative. Exam: 17:22 Constitutional: This is a well developed, well nourished patient who is awake, alert, ms3 and in no acute distress. Head/Face: Normocephalic, atraumatic. Neck: Trachea midline, no cervical lymphadenopathy. Supple, full range of motion without nuchal rigidity, or vertebral point tenderness. No Meningismus. Chest/axilla: Normal chest wall appearance and motion. Nontender with no deformity. Cardiovascular: Regular rate and rhythm with a normal S1 and S2. No gallops, murmurs, or rubs. Normal PMI, no JVD. No pulse deficits. Respiratory: Lungs have equal breath sounds bilaterally, clear to auscultation and percussion. No rales, rhonchi or wheezes noted. No increased work of breathing, no retractions or nasal flaring. Abdomen/GI: Soft, non-tender, with normal bowel sounds. No distension or tympany. No guarding or rebound. No evidence of tenderness throughout. Skin: Warm, dry with normal turgor. Normal color with no rashes, no lesions, and no evidence of cellulitis. MS/ Extremity: Pulses equal, no cyanosis. Neurovascular intact. Full, normal range of motion. 17:22 Back: pain, that is severe, of the right mid back, CVA tenderness, that is severe, is noted on the right. Vital Signs: 17:30 BP 142 / 91; Pulse 97; Resp 20; Temp 98.0; Pulse Ox 98% ; Weight 92.99 kg; Height 5 ft. kb3 10 in. (177.80 cm); Pain 8/10; 18:25 BP 136 / 89; Pulse 91; Resp 18; Pulse Ox 99% on R/A; Pain 8/10; ld1 19:42 Resp 14; Temp 98.6; tw5 17:30 Body Mass Index 29.41 (92.99 kg, 177.80 cm) kb3 MDM: 17:22 Differential diagnosis: nephrolithiasis, Post stent pain vs hydronephrosis. ms3 17:32 Patient medically screened. ms3 18:38 ED course: Case discussed with Dr Coe on speaker phone with patient. Patient ms3 offered nephrostomy tube or close follow up by Dr Coe. Through shared decision making patient will follow up with Dr Coe on Saturday or Saturday and they will recheck labs. Dr Coe states CT findings are typical for sx that was performed on Saturday. Would like patient d/c on pain medication and abx. Patient currently on T#3 and Cipro 500 mg BID. Patient states he does not need additional pain medication. Patient to follow-up with Dr. Coe as discussed. All questions were answered. Return precautions discussed include worsening pain, fevers, chills, worsening symptoms, or any other concerns. On reevaluation patient's pain is improved, patient is alert and oriented x4, in no apparent distress, nontoxic-appearing.. 03/16 17:14 Order name: CBC with Diff; Complete Time: 18:16 ms3 03/16 17:14 Order name: BMP; Complete Time: 18:16 ms3 03/16 17:22 Order name: CT Abd/Pelvis - Without Contrast; Complete Time: 18:22 ms3 Administered Medications: 17:55 Drug: Ketorolac 10 mg 10 mg Route: IVP; Site: right antecubital; ld1 19:42 Follow up: Response: No adverse reaction; Pain is decreased tw5 18:25 Drug: NS 0.9% 1000 ml Route: IV; Rate: 1000 ml; Site: right antecubital; ld1 19:42 Follow up: Response: No adverse reaction; IV Status: Completed infusion; IV Intake: tw5 1000ml Disposition Summary: 03/16/22 18:44 Discharge Ordered Location: Home ms3 Condition: Stable ms3 Diagnosis - Unspecified hydronephrosis ms3 - Right Flank pain ms3 Followup: ms3 - With: Efrain Coe - When: 2 - 3 days - Reason: Recheck today's complaints Discharge Instructions: - Discharge Summary Sheet ms3 - Hydronephrosis ms3 Forms: - Medication Reconciliation Form ms3 - Thank You Letter ms3 - Antibiotic Education ms3 - Prescription Opioid Use ms3 Signatures: Dispatcher [employer] EDZay Neely DO DO ms3 Dayna Caraballo, RN RN ld1 Liseth Abdi, RN RN [email or web address] Briseida Dillard tw5
--- NOTE | 2022-03-16 18:44 | ER ---
Nurse's Notes [facility] Name: Miguel Montes Age: 36 yrs Sex: Male : 1985 Arrival Date: 03/16/2022 Time: 17:14 Bed 8 Private MD: Clay Arnett; Efrain Coe Diagnosis: Unspecified hydronephrosis;Right Flank pain Presentation: 03/16 17:30 Chief complaint: Patient states: obstructing kidney stone removed and stent placed on kb3 03/14. Reports increased pain in right flank today. 17:30 Method Of Arrival: Ambulatory kb3 17:30 Coronavirus screen: Vaccine status: Patient reports receiving the 2nd dose of the covid kb3 vaccine. Client denies travel out of the [place] in the last 14 days. Ebola Screen: Patient negative for fever greater than or equal to 101.5 degrees Fahrenheit, and additional compatible Ebola Virus Disease symptoms Patient denies exposure to infectious person. Patient denies travel to an Ebola-affected area in the 21 days before illness onset. Initial Sepsis Screen: Does the patient meet any 2 criteria? No. Patient's initial sepsis screen is negative. Does the patient have a suspected source of infection? No. Patient's initial sepsis screen is negative. Risk Assessment: Do you want to hurt yourself or someone else? Patient reports no desire to harm self or others. Onset of symptoms was March 16, 2022 at 07:00. 17:30 Acuity: NAT 3 kb3 Triage Assessment: 17:51 General: Appears in no apparent distress. uncomfortable, Behavior is calm, cooperative. kb3 Pain: Complains of pain in right mid back and right low back Pain does not radiate. Pain currently is 8 out of 10 on a pain scale. Quality of pain is described as sharp. : Reports right flank pain. Historical: - Allergies: 17:51 No Known Allergies; kb3 - Home Meds: 17:51 None [Active]; kb3 - PMHx: 17:51 Kidney stone; kb3 - PSHx: 17:51 ear; Right uretal stent; kb3 - Immunization history:: Adult Immunizations up to date, Client reports receiving the 2nd dose of the Covid vaccine, Last tetanus immunization: up to date. - Social history:: Smoking status: Patient denies any tobacco usage or history of. Screenin:25 Abuse screen: Denies threats or abuse. Denies injuries from another. Nutritional ld1 screening: No deficits noted. Tuberculosis screening: No symptoms or risk factors identified. 19:43 [facility] ED Fall Risk Assessment (Adult) History of falling in the last 3 months, tw5 including since admission No falls in past 3 months (0 pts). Assessment: 18:25 General: Appears in no apparent distress. uncomfortable, Behavior is calm, cooperative, ld1 appropriate for age. Pain: Complains of pain in back and right low back and right mid back Pain does not radiate. Pain currently is 8 out of 10 on a pain scale. Quality of pain is described as throbbing. Neuro: Level of Consciousness is awake, alert, obeys commands, Oriented to person, place, time, situation. Cardiovascular: Capillary refill < 3 seconds Patient's skin is warm and dry. Respiratory: Airway is patent Respiratory effort is even, unlabored. GI: Abdomen is flat, non-distended. : No signs and/or symptoms were reported regarding the genitourinary system. EENT: No signs and/or symptoms were reported regarding the EENT system. Derm: No signs and/or symptoms reported regarding the dermatologic system. Musculoskeletal: No signs and/or symptoms reported regarding the musculoskeletal system. 19:42 Reassessment: Patient states feeling better. Patient states symptoms have improved. tw5 General: Reports "The pain is better when I am laying down. I can still feel it when I am up and walking around. I have an appointment on Saturday or Saturday to follow up with the urologist.". Vital Signs: 17:30 BP 142 / 91; Pulse 97; Resp 20; Temp 98.0; Pulse Ox 98% ; Weight 92.99 kg; Height 5 ft. kb3 10 in. (177.80 cm); Pain 8/10; 18:25 BP 136 / 89; Pulse 91; Resp 18; Pulse Ox 99% on R/A; Pain 8/10; ld1 19:42 Resp 14; Temp 98.6; tw5 17:30 Body Mass Index 29.41 (92.99 kg, 177.80 cm) kb3 ED Course: 17:14 Patient arrived in ED. as 17:14 Zay Ferreira DO is Attending Physician. ms3 17:14 Efrain Coe is Private Physician. as 17:14 Clay Arnett MD is Private Physician. as 17:34 Dayna Caraballo, RN is Primary Nurse. ld1 17:51 Triage completed. kb3 17:51 Arm band placed on right wrist. Patient placed in an exam room, on a stretcher. kb3 17:55 BMP Sent. ld1 17:55 CBC with Diff Sent. ld1 17:56 Inserted saline lock: 22 gauge in right antecubital area, using aseptic technique. ap3 Blood collected. 18:02 CT Abd/Pelvis - Without Contrast In Process Unspecified. EDMS 18:25 Patient has correct armband on for positive identification. Placed in gown. Bed in low ld1 position. Call light in reach. Side rails up X2. Pulse ox on. NIBP on. Door closed. Noise minimized. Warm blanket given. 18:25 No provider procedures requiring assistance completed. ld1 18:42 Efrain Coe is Referral Physician. ms3 19:42 IV discontinued, intact, bleeding controlled, No redness/swelling at site. Pressure tw5 dressing applied. Administered Medications: 17:55 Drug: Ketorolac 10 mg 10 mg Route: IVP; Site: right antecubital; ld1 19:42 Follow up: Response: No adverse reaction; Pain is decreased tw5 18:25 Drug: NS 0.9% 1000 ml Route: IV; Rate: 1000 ml; Site: right antecubital; ld1 19:42 Follow up: Response: No adverse reaction; IV Status: Completed infusion; IV Intake: tw5 1000ml Medication: 18:25 VIS not applicable for this client. ld1 Intake: 19:42 IV: 1000ml; Total: 1000ml. tw5 Outcome: 18:44 Discharge ordered by . ms3 19:42 Discharged to home ambulatory. tw5 19:42 Condition: improved 19:42 Discharge instructions given to patient, Instructed on discharge instructions, follow up and referral plans. Demonstrated understanding of instructions, follow-up care. 19:43 Patient left the ED. tw5 Signatures: Dispatcher [employer] EDMS Valerie Woodson Amanda, RN RN ap3 Zay Ferreira DO DO ms3 Dayna Caraballo, LUCY RN ld1 Briseida Dillard tw5 Liseth Abdi, RN RN kb3
[2022-03-16 20:12] VITALS: BP 136/89; TEMP 98.6; O2SAT 99
== END 2022-03-16 19:43 | disposition home or self-care (01) ==
LOC: ER 17:12
DX: N13.30 Unspecified hydronephrosis (principal); Z87.442 Personal history of urinary calculi
CPT/HCPCS: 96361; 85025; 80048; 36415; 74176; 96374; 99284; J7030

== ENCOUNTER 2023-11-30 00:01 | Emergency (ER) | payer BC ==
[2023-11-30 00:45] LABS: Absolute Eosinophils 0.1 K/uL (0-0.5); Absolute Lymphocytes (CBC) 1.3 K/uL (0.7-4.9); Absolute Monocytes 0.4 K/uL (0.1-1.3); Absolute Neutrophil 5.1 K/uL (1.8-8.0); Basophils % 0.6 % (0-1.3); Eosinophils % 0.7 % (0-4.4); Hematocrit 44.7 % (39.6-49.0); Hemoglobin 15.1 g/dL (13.6-17.9); Lymphocytes % 18.8 % (15.3-44.8); MCHC 33.9 g/dL (32.0-36.0); MCV 82.7 fL (80-100); MPV 7.8 fL (7.6-11.3); Monocytes % 6.5 % (3.3-12.3); Neutrophils % 73.4 % (41.7-73.7); Nucleated Red Blood Cells % 0.2 % (0-0); Platelets 266 thou/uL (152-406); RBC Red Blood Cell Count 5.41 M/uL (4.33-5.43); Red Cell Distribution Width 13.6 % (12.1-15.2)
[2023-11-30 00:57] LABS: Specific Gravity 1.027 (1.005-1.030); Sqamous Epithelial <5 /HPF (None Seen); Urine Bacteria <20 /HPF (<20); Urine Bilirubin NEGATIVE (Negative); Urine Blood 3+ (OVER) (Negative); Urine Clarity Extremely Turbid (Clear); Urine Color Dark-Brown (Yellow); Urine Crystals Unidentified Many /HPF (None Seen); Urine Culture Reflex Order NOT NEEDED; Urine Glucose NEGATIVE (Negative); Urine Ketones TRACE (Negative); Urine Microscopic Reflex YN ORDER UMIC; Urine Mucus 1+ /HPF (None Seen); Urine Nitrite NEGATIVE (Negative); Urine Protein 3+ (Negative); Urine RBC >50 /HPF (None Seen); Urine Urobilinogen Normal (Normal); Urine Yeast (Budding) Many /HPF (None Seen)
[2023-11-30] MEDS ORDERED: CEFTRIAXONE 1000 MG/VIAL ONE (00:59)
[2023-11-30] MEDS ORDERED: TRAMADOL HCL 50 MG TAB ONE (00:59)
[2023-11-30] MEDS ORDERED: NA CHLORIDE 0.9% 1,000 ML ONE (01:00)
[2023-11-30] MEDS ORDERED: NA CHLORIDE 0.9% 50 ML ONE (01:00)
[2023-11-30 01:05] LABS: Albumin/Globulin Ratio 1.1 (1.1-1.8); Anion Gap 10.2 mEq/L (5.0-15.0); Bilirubin Total 0.6 mg/dL (0.2-1.0); Globulin 3.7 g/dL (2.3-3.5); Potassium 3.2 mEq/L (3.5-5.1); Protein, Total 7.7 g/dL (6.4-8.2)
--- NOTE | 2023-11-30 02:47 | EDPHYS ---
Physician Documentation [facility] Name: Miguel Montes Age: 38 yrs Sex: Male : 1985 Arrival Date: 11/30/2023 Time: 00:01 Bed 13 Private MD: ED Physician Rl Ying HPI: 11/29 00:35 This 38 yrs old Male presents to ER via Ambulatory with complaints of Pelvic sp4 Pain, Abdominal Pain, Nausea/Vomiting. 03:40 38 -year-old male with history of Right multiple ureteral stents presents with sp4 hematuria and bilateral back pain. Historical: - Allergies: 00:16 No Known Allergies; ss - Home Meds: 00:16 None [Active]; ss - PMHx: 00:16 Kidney stone; ss - PSHx: 00:16 ear; Right uretal stent; ss - Immunization history:: Client reports receiving the 2nd dose of the Covid vaccine. - Infectious Disease History:: Denies. - Social history:: Smoking status: Patient denies any tobacco usage or history of. - Family history:: not pertinent. ROS: 03:40 Constitutional: Negative for fever, chills, and weight loss, Positive hematuria and sp4 positive bilateral back pain 03:40 All other systems are negative, Exam: 03:40 Constitutional: This is a well developed, well nourished patient who is awake, alert, sp4 and in no acute distress. Head/Face: Normocephalic, atraumatic. Eyes: Pupils equal round and reactive to light, extra-ocular motions intact. Lids and lashes normal. Conjunctiva and sclera are not injected. Cornea within normal limits. Periorbital areas with no swelling, redness, or edema. ENT: Nares patent. No nasal discharge, no septal abnormalities noted. Tympanic membranes are normal and external auditory canals are clear. Oropharynx with no redness, swelling, or masses, exudates, or evidence of obstruction, uvula midline. Mucous membranes moist. Neck: Trachea midline, no thyromegaly or masses palpated, and no cervical lymphadenopathy. Supple, full range of motion without nuchal rigidity, or vertebral point tenderness. Chest/axilla: Normal chest wall appearance and motion. Nontender with no deformity. No lesions are appreciated. Cardiovascular: Regular rate and rhythm with a normal S1 and S2. No gallops, murmurs, or rubs. Normal PMI, no JVD. No pulse deficits. Respiratory: Lungs have equal breath sounds bilaterally, clear to auscultation and percussion. No rales, rhonchi or wheezes noted. No increased work of breathing, no retractions or nasal flaring. Abdomen/GI: Soft, with normal bowel sounds. No distension or tympany. No guarding or rebound. No evidence of tenderness throughout. Back: No spinal tenderness. No costovertebral tenderness. Male : Normal genitalia with no discharge or lesions. Skin: Warm, dry with normal turgor. Normal color with no rashes, no lesions, and no evidence of cellulitis. MS/ Extremity: Pulses equal, no cyanosis. Neurovascular intact. Full, normal range of motion. Neuro: Awake and alert, GCS 15, oriented to person, place, time, and situation. Cranial nerves II-XII grossly intact. Motor strength 5/5 in all extremities. Sensory grossly intact. Psych: Awake, alert, with orientation to person, place and time. Behavior, mood, and affect are within normal limits Vital Signs: 00:14 BP 149 / 116; Pulse 106; Resp 16; Temp 98.4(O); Pulse Ox 99% on R/A; Weight 80.74 kg; ss Height 5 ft. 10 in. ; Pain 6/10; 00:17 BP 153 / 103; ss 01:11 BP 146 / 94; Pulse 93; Resp 16; Pulse Ox 98% ; vc1 02:23 BP 151 / 101; Pulse 82; Resp 16; Pulse Ox 100% ; vc1 00:14 Body Mass Index 25.54 (80.74 kg, 177.8 cm) ss 00:14 Pain Scale: Adult ss Rosita Coma Score: 03:40 Eye Response: spontaneous(4). Motor Response: obeys commands(6). Verbal Response: sp4 oriented(5). Total: 15. MDM: 00:35 Patient medically screened. sp4 03:42 Differential diagnosis: Nonspecific abd pain, gastritis, cholecystitis, diverticulitis, sp4 viral gastroenteritis, gastroenteritis. Data reviewed: vital signs, nurses notes, old medical records, lab test result(s), radiologic studies, CT scan. ED course: EXAM: CTAbdomen and Pelvis Without Intravenous Contrast CLINICAL HISTORY: The patient is 38 years old and is Male; ABD PAIN TECHNIQUE: Axial computed tomography images of the abdomen and pelvis without intravenous contrast. Sagittal and coronal reformatted images were created and reviewed. This CT exam was performed using one or more of the following dose reduction techniques: automated exposure control, adjustment of the mA and/or kV according to patient size, and/or use of iterative reconstruction technique. COMPARISON: CT March 16, 2022 FINDINGS: LUNG BASES: Unremarkable. No mass. No consolidation. ABDOMEN: LIVER: Homogeneous without focal mass. GALLBLADDER AND BILE DUCTS: No calcified stones. No ductal dilation. PANCREAS: Unremarkable. No ductal dilation. SPLEEN: Unremarkable. ADRENALS: Unremarkable. No mass. KIDNEYS AND URETERS: Edema of the right kidney with perinephric and periureteral stranding is present. Right double-J ureteral stent is in place. Mild right hydronephrosis is noted. A right intrarenal calcification is present. The left kidney is normal without hydronephrosis or hydroureter. No obstructing calculus is in. STOMACH AND BOWEL: The stomach is moderately filled with fluid and air. The small bowel is normal in caliber. Stool is present throughout the colon. There is no mucosal thickening or evidence of obstruction. PELVIS: APPENDIX: The appendix is normal in caliber without surrounding inflammation. BLADDER: Unremarkable. No stones. REPRODUCTIVE: Unremarkable as visualized. ABDOMEN and PELVIS: INTRAPERITONEAL SPACE: Unremarkable. No free air. No significant fluid collection. 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 Degenerative change of the spine is noted. SOFT TISSUES: The soft tissues are normal. VASCULATURE: Calcified phleboliths are present within the pelvis. No abdominal aortic aneurysm. LYMPH NODES: Unremarkable. No enlarged lymph nodes. IMPRESSION: Edematous right kidney with surrounding stranding and mild right hydronephrosis. Double-J ureteral stent is in place. An obstructing calculus is not seen. Superimposed infectious process is within the differential. Electronically signed by: Reyna Lyn MD 11/30/2023 02:06 . 11/29 00:27 Order name: CBC with Diff; Complete Time: 02:35 vc1 11/29 00:27 Order name: CMP; Complete Time: 02:35 vc1 11/29 00:27 Order name: Lipase; Complete Time: 02:35 vc1 11/29 00:27 Order name: Urinalysis w/ reflexes; Complete Time: 02:35 vc1 11/29 00:35 Order name: CT Abd/Pelvis - Without Contrast sp4 11/29 00:27 Order name: IV Saline Lock; Complete Time: 00:27 vc1 11/29 00:27 Order name: Labs collected and sent; Complete Time: 00:27 vc1 Administered Medications: 01:10 Drug: NS 0.9% IV 1000 ml IV at 1 bolus Per protocol; 1000 mL bolus Route: IV; Rate: 1 vc1 bolus; Site: right antecubital; 02:10 Follow up: IV Status: Completed infusion; IV Intake: 1000ml vc1 01:10 Drug: traMADol PO 100 mg PO once Route: PO; vc1 01:40 Follow up: Response: No adverse reaction; Pain is decreased vc1 01:10 Drug: Rocephin - Rocephin (cefTRIAXone) IVPB 1 grams IVPB once over 30 mins; (mix in 50 vc1 mL NS) Route: IVPB; Infused Over: 30 mins; Site: right antecubital; 01:40 Follow up: IV Status: Completed infusion; IV Intake: 50ml vc1 03:10 Drug: Ciprofloxacin PO 500 mg PO once Route: PO; vc1 03:10 Follow up: Response: Medication administered at discharge. vc1 03:10 Drug: Ondansetron PO 4 mg PO once Route: PO; vc1 03:10 Follow up: Response: Medication administered at discharge. vc1 Disposition Summary: 11/30/23 02:47 Discharge Ordered Notes: Location: Home sp4 Problem: new sp4 Symptoms: have improved sp4 Condition: Stable sp4 Diagnosis - Pyelonephritis acute sp4 - Gross hematuria, right hydronephrosis, right ureteral stent in place, right sp4 pyelonephritis Followup: sp4 - With: Private Physician - When: 7 - 10 days - Reason: Recheck today's complaints Discharge Instructions: - Discharge Summary Sheet sp4 - Pyelonephritis, Adult, [id number] sp4 Forms: - Patient Portal Instructions sp4 Prescriptions: - phenazopyridine 200 mg Oral tablet - take 1 tablet ORAL route 3 times per day for 3 days as needed for pain; 9 sp4 tablet; Refills: 0, Product Selection Permitted - Cipro 500 mg Oral Tablet - take 1 tablet ORAL route every 12 hours for 10 days; 20 tablet; Refills: 0, sp4 Product Selection Permitted - Tramadol 50 mg Oral tablet - take 1 tablet ORAL route every 8 hours as needed; 20 tablet; Refills: 0, sp4 Product Selection Permitted - ondansetron 8 mg Oral Tablet,disintegrating - take 1 tablet ORAL route every 8 hours PRN nausea; 30 tablet; Refills: 0, sp4 Product Selection Permitted Signatures: Dispatcher [employer] EDMS Madhuri Montemayor RN RN ss Kalani Mora RN RN vc1 Rl Ying MD MD sp4 Corrections: (The following items were deleted from the chart) 00:28 00:28 CBC+H.LAB.BRZ ordered. EDMS EDMS 00:28 00:28 COMPREHENSIVE METABOLIC PANEL+C.LAB.BRZ ordered. EDMS EDMS 00:28 00:28 LIPASE+C.LAB.BRZ ordered. EDMS EDMS 00:28 00:28 Urinalysis+U.LAB.BRZ ordered. EDMS EDMS 00:35 00:35 Abdomen Pelvis Wo Con+CT.RAD.BRZ ordered. EDMS EDMS
--- NOTE | 2023-11-30 02:47 | ER ---
Nurse's Notes [facility] Name: Miguel Montes Age: 38 yrs Sex: Male : 1985 Arrival Date: 11/30/2023 Time: 00:01 Bed 13 Private MD: Diagnosis: Pyelonephritis acute;Gross hematuria, right hydronephrosis, right ureteral stent in place, right pyelonephritis Presentation: 11/29 00:15 Chief complaint: Patient states: bilateral flank pain that has been ongoing for a few ss days. Also c/o burning with urination and frequency since stent was placed in September. Pt reportedly saw his urologist at the beginning of the week, but has not received his UA results. Coronavirus screen: Client denies travel out of the [place] in the last 14 days. Ebola Screen: Patient denies exposure to infectious person. Patient denies travel to an Ebola-affected area in the 21 days before illness onset. Initial Sepsis Screen: Does the patient meet any 2 criteria? No. Patient's initial sepsis screen is negative. Does the patient have a suspected source of infection? No. Patient's initial sepsis screen is negative. Risk Assessment: Do you want to hurt yourself or someone else? Patient reports no desire to harm self or others. Onset of symptoms is unknown. 00:15 Acuity: NAT 3 ss 00:15 Method Of Arrival: Ambulatory ss Historical: - Allergies: 00:16 No Known Allergies; ss - Home Meds: 00:16 None [Active]; ss - PMHx: 00:16 Kidney stone; ss - PSHx: 00:16 ear; Right uretal stent; ss - Immunization history:: Client reports receiving the 2nd dose of the Covid vaccine. - Infectious Disease History:: Denies. - Social history:: Smoking status: Patient denies any tobacco usage or history of. - Family history:: not pertinent. Screenin:22 [facility] ED Fall Risk Assessment (Adult) History of falling in the last 3 months, vc1 including since admission No falls in past 3 months (0 pts) Confusion or Disorientation No (0 pts) Intoxicated or Sedated No (0 pts) Impaired Gait No (0 pts) Mobility Assist Device Used No (0 pt) Altered Elimination No (0 pt) Score/Fall Risk Level 0 - 2 = Low Risk Oriented to surroundings, Maintained a safe environment, Educated pt \T\ family on fall prevention, incl call for assistance when getting out of bed. Abuse screen: Denies threats or abuse. Nutritional screening: No deficits noted. Tuberculosis screening: No symptoms or risk factors identified. Assessment: 00:17 Reassessment: Pt ambulated to restroom with steady gait to give urine specimen. ss 00:23 General: Appears in no apparent distress. uncomfortable, slender, well groomed, well vc1 developed, Behavior is calm, cooperative, appropriate for age. Pain: Complains of pain in right lower quadrant and left lower quadrant Pain does not radiate. Pain currently is 7 out of 10 on a pain scale. Quality of pain is described as sharp. Neuro: Level of Consciousness is awake, alert, obeys commands, Oriented to person, place, time, situation, Appropriate for age. Cardiovascular: Capillary refill < 3 seconds Patient's skin is warm and dry. Respiratory: Airway is patent Respiratory effort is even, unlabored, Respiratory pattern is regular, symmetrical, Breath sounds are clear bilaterally. GI: Bowel sounds present X 4 quads. Abd is soft and non tender. : Urine is orange urine Reports pain in right in left lower quadrant(s). EENT: No deficits noted. No signs and/or symptoms were reported regarding the EENT system. Derm: Skin is intact, is healthy with good turgor, Skin is dry, Skin is normal, Skin temperature is warm. Musculoskeletal: Circulation, motion, and sensation intact. Range of motion: intact in all extremities. 01:11 Reassessment: Patient appears in no apparent distress at this time. No changes from vc1 previously documented assessment. Patient and/or family updated on plan of care and expected duration. Pain level reassessed. Patient is alert, oriented x 3, equal unlabored respirations, skin warm/dry/pink. 02:23 Reassessment: Patient appears in no apparent distress at this time. No changes from vc1 previously documented assessment. Patient and/or family updated on plan of care and expected duration. Pain level reassessed. Patient is alert, oriented x 3, equal unlabored respirations, skin warm/dry/pink. Patient states symptoms have improved. Vital Signs: 00:14 BP 149 / 116; Pulse 106; Resp 16; Temp 98.4(O); Pulse Ox 99% on R/A; Weight 80.74 kg; ss Height 5 ft. 10 in. ; Pain 6/10; 00:17 BP 153 / 103; ss 01:11 BP 146 / 94; Pulse 93; Resp 16; Pulse Ox 98% ; vc1 02:23 BP 151 / 101; Pulse 82; Resp 16; Pulse Ox 100% ; vc1 00:14 Body Mass Index 25.54 (80.74 kg, 177.8 cm) ss 00:14 Pain Scale: Adult ss Rosita Coma Score: 03:40 Eye Response: spontaneous(4). Motor Response: obeys commands(6). Verbal Response: sp4 oriented(5). Total: 15. ED Course: 00:04 Patient arrived in ED. jj6 00:14 Arm band placed on right wrist. ss 00:16 Triage completed. ss 00:22 Kalani Mora, LUCY is Primary Nurse. vc1 00:23 Patient has correct armband on for positive identification. Placed in gown. Call light vc1 in reach. Pulse ox on. NIBP on. 00:28 Rl Ying MD is Attending Physician. vc1 00:28 Inserted saline lock: 20 gauge in right antecubital area, using aseptic technique. vc1 Blood collected. Flushed with 10 mL NS. 01:25 CT Abd/Pelvis - Without Contrast In Process Unspecified. EDMS 02:22 No provider procedures requiring assistance completed. vc1 03:10 IV discontinued, intact, bleeding controlled, No redness/swelling at site. Pressure vc1 dressing applied. 03:11 Provided Education on: COMPLETE ABX. vc1 Administered Medications: 01:10 Drug: NS 0.9% IV 1000 ml IV at 1 bolus Per protocol; 1000 mL bolus Route: IV; Rate: 1 vc1 bolus; Site: right antecubital; 02:10 Follow up: IV Status: Completed infusion; IV Intake: 1000ml vc1 01:10 Drug: traMADol PO 100 mg PO once Route: PO; vc1 01:40 Follow up: Response: No adverse reaction; Pain is decreased vc1 01:10 Drug: Rocephin - Rocephin (cefTRIAXone) IVPB 1 grams IVPB once over 30 mins; (mix in 50 vc1 mL NS) Route: IVPB; Infused Over: 30 mins; Site: right antecubital; 01:40 Follow up: IV Status: Completed infusion; IV Intake: 50ml vc1 03:10 Drug: Ciprofloxacin PO 500 mg PO once Route: PO; vc1 03:10 Follow up: Response: Medication administered at discharge. vc1 03:10 Drug: Ondansetron PO 4 mg PO once Route: PO; vc1 03:10 Follow up: Response: Medication administered at discharge. vc1 Medication: 00:23 VIS not applicable for this client. vc1 Intake: 01:40 IV: 50ml; Total: 50ml. vc1 02:10 IV: 1000ml; Total: 1050ml. vc1 Outcome: 02:47 Discharge ordered by . sp4 03:10 Discharged to home ambulatory, vc1 03:10 Condition: good 03:10 Discharge instructions given to patient, Instructed on discharge instructions, follow up and referral plans. medication usage, Demonstrated understanding of instructions, follow-up care, medications, Prescriptions given X 4, 03:11 Patient left the ED. vc1 Signatures: Dispatcher [employer] EDMadhuri Mancilla RN RN Yolis Paris jj6 Kalani Mora RN RN vc1 Rl Ying MD MD sp4
[2023-11-30] MEDS ORDERED: ONDANSETRON 4 MG (ODT) TAB ONE (02:50)
[2023-11-30] MEDS ORDERED: CIPROFLOXACIN HCL 500 MG TAB ONE (02:51)
[2023-11-30 03:26] VITALS: TEMP 98.4
[2023-11-30 03:31] VITALS: BP 151/101; O2SAT 100
--- NOTE | 2023-11-30 20:25 | RAD REPORT ---
EXAM DESCRIPTION: CT - Abdomen Pelvis Wo Contrast - 11/30/2023 7:12 am CLINICAL HISTORY: The patient is 38 years old and is Male; ABD PAIN TECHNIQUE: Axial computed tomography images of the abdomen and pelvis without intravenous contrast. Sagittal and coronal reformatted images were created and reviewed. This CT exam was performed usi ng one or more of the following dose reduction techniques: automated exposure control, adjustment o f the mA and/or kV according to patient size, and/or use of iterative reconstruction technique. COMPARISON: CT March 16, 2022 FINDINGS: LUNG BASES: Unremarkable. No mass. No consolidation. ABDOMEN: LIVER: Homogeneous without focal mass. GALLBLADDER AND BILE DUCTS: No calcified stones. No ductal dilation. PANCREAS: Unremarkable. No ductal dilation. SPLEEN: Unremarkable. ADRENALS: Unremarkable. No mass. KIDNEYS AND URETERS: Edema of the right kidney with perinephric and periureteral stranding is pre sent. Right double-J ureteral stent is in place. Mild right hydronephrosis is noted. A right intraren al calcification is present. The left kidney is normal without hydronephrosis or hydroureter. No ob structing calculus is in. STOMACH AND BOWEL: The stomach is moderately filled with fluid and air. The small bowel is normal in caliber. Stool is present throughout the colon. There is no mucosal thickening or evidence of obs truction. PELVIS: APPENDIX: The appendix is normal in caliber without surrounding inflammation. BLADDER: Unremarkable. No stones. REPRODUCTIVE: Unremarkable as visualized. ABDOMEN and PELVIS: INTRAPERITONEAL SPACE: Unremarkable. No free air. No significant fluid collection. 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 Degen erative change of the spine is noted. SOFT TISSUES: The soft tissues are normal. VASCULATURE: Calcified phleboliths are present within the pelvis. No abdominal aortic aneurysm. LYMPH NODES: Unremarkable. No enlarged lymph nodes. IMPRESSION: Edematous right kidney with surrounding stranding and mild right hydronephrosis. Double- J ureteral stent is in place. An obstructing calculus is not seen. Superimposed infectious process is within the differential. Electronically signed by: Reyna Lyn MD 11/30/2023 02:06 AM CDT RP Due to temporary technical issues with the PACS/Fluency reporting system, reports are being signed by the in house radiologists without review as a courtesy to insure prompt reporting. The interpreting radiologist is fully responsible for the content of the report.
== END 2023-11-30 03:11 | disposition home or self-care (01) ==
LOC: ER 00:01
DX: N10 Acute pyelonephritis (principal); N13.30 Unspecified hydronephrosis; Z96.0 Presence of urogenital implants; Z87.442 Personal history of urinary calculi
CPT/HCPCS: 96365; 85025; 81001; 36415; 83690; 80053; 74176; 99284; Q0162; J7030; J0696

== ENCOUNTER 2024-02-25 16:35 | Emergency (ER) | payer BC ==
[2024-02-25 17:11] LABS: Calcium Oxalate Crystals- Ur Few /HPF (None Seen); Specific Gravity 1.021 (1.005-1.030); Sqamous Epithelial None Seen /HPF (None Seen); Urine Bacteria None Seen /HPF (<20); Urine Bilirubin NEGATIVE (Negative); Urine Blood 2+ (Negative); Urine Clarity Extremely Turbid (Clear); Urine Color Light-Orange (Yellow); Urine Crystals Unidentified Moderate /HPF (None Seen); Urine Culture Reflex Order REFLEXED; Urine Glucose NEGATIVE (Negative); Urine Ketones NEGATIVE (Negative); Urine Microscopic Reflex YN ORDER UMIC; Urine Mucus Slight /HPF (None Seen); Urine Nitrite 2+ (Negative); Urine Protein 2+ (Negative); Urine RBC >50 /HPF (None Seen); Urine Urobilinogen Normal (Normal); Urine WBC >50 /HPF (<5); Urine WBC Clump Few /HPF (None Seen); Urine Yeast (Budding) Occasional /HPF (None Seen)
[2024-02-25] MEDS ORDERED: CEFTRIAXONE 1000 MG/VIAL ONE (17:21)
[2024-02-25] MEDS ORDERED: ONDANSETRON 4 MG/2 ML VIAL ONE (17:21)
[2024-02-25] MEDS ORDERED: ACETAMINOPHEN 500 MG TAB ONE (17:22)
[2024-02-25] MEDS ORDERED: MORPHINE 4 MG/ML SYR ONE (17:22)
[2024-02-25] MEDS ORDERED: NA CHLORIDE 0.9% 3,000 ML ONE (17:22)
[2024-02-25] MEDS ORDERED: KETOROLAC 30 MG/ML INJ ONE (17:22)
[2024-02-25 17:29] LABS: Absolute Lymphocytes (CBC) 0.5 K/uL (0.7-4.9); Absolute Monocytes 0.6 K/uL (0.1-1.3); Absolute Neutrophil 13.3 K/uL (1.8-8.0); Basophils % 0.2 % (0-1.3); Eosinophils % 0.2 % (0-4.4); Hematocrit 46.1 % (39.6-49.0); Hemoglobin 15.7 g/dL (13.6-17.9); Lymphocytes % 3.6 % (15.3-44.8); MCH 28.2 pg (27.0-35.0); MCV 82.8 fL (80-100); MPV 7.2 fL (7.6-11.3); Monocytes % 4.2 % (3.3-12.3); Neutrophils % 91.8 % (41.7-73.7); Nucleated Red Blood Cells % 0.1 % (0-0); Platelets 325 thou/uL (152-406); RBC Red Blood Cell Count 5.57 M/uL (4.33-5.43); Red Cell Distribution Width 13.8 % (12.1-15.2)
--- NOTE | 2024-02-25 17:34 | RAD REPORT ---
EXAMINATION: ONE VIEW CHEST XR CLINICAL INDICATION: COUGH TECHNIQUE: Frontal chest projection is submitted. Examination is limited by patient positioning and t echnique. COMPARISON: 02/14/2018 FINDINGS: The lungs are well inflated and clear. The heart is normal in size. No displaced fractures identified . IMPRESSION: No acute intrathoracic abnormalities.
[2024-02-25 17:36] LABS: PT Prothrombin Time 12.6 SECONDS (9.4-12.5); PTT, Activated Partial Thromb 33.2 SECONDS (24.3-36.9); Protime INR 1.13
[2024-02-25 17:44] LABS: Albumin 3.7 g/dL (3.4-5.0); Albumin/Globulin Ratio 0.9 (1.1-1.8); Anion Gap 10.5 mEq/L (5.0-15.0); Bilirubin Total 0.6 mg/dL (0.2-1.0); Potassium 3.5 mEq/L (3.5-5.1); Protein, Total 7.7 g/dL (6.4-8.2)
--- NOTE | 2024-02-25 17:44 | EDPHYS ---
Physician Documentation [facility] [place] Name: Miguel Montes Age: 38 yrs Sex: Male : 1985 Arrival Date: 02/25/2024 Time: 16:35 Bed 26 Private MD: ED Physician Rl Ying HPI: 02/24 16:56 This 38 yrs old Male presents to ER via Ambulatory with complaints of Back ec2 Pain. 16:56 Patient arrives today for right-sided flank pain along with chills and subjective ec2 fevers. Reports that he has been having issues with his right kidney, has a nephrostomy tube in place along with the ureteral stent. Patient reports he been having some nausea, decreased p.o. intake, myalgias. No vomiting, no diarrhea. Patient follows with [facility] well [facility]. Reports cloudy appearing urine as well.. Historical: - Allergies: 16:48 No Known Allergies; [facility] - Home Meds: 16:48 None [Active]; 6 - PMHx: 16:48 Kidney stone; [facility] - PSHx: 16:48 Right uretal stent; ear; nephrostomy tube (ear); 6 - Immunization history:: Adult Immunizations up to date. - Infectious Disease History:: Denies. - Social history:: Smoking status: Patient denies any tobacco usage or history of. ROS: 16:56 Constitutional: as per hpi ec2 Exam: 16:56 Constitutional: GEN: NAD Head: atraumatic Eyes: EOMI Ears: External ears are ec2 normal. CV: Tachycardia LUNGS: no respiratory distress ABD: non-distended, soft, upper abdominal TTP without guarding or rigidity. Nephrostomy tube in the right flank noted, no surrounding erythema, TTP noted. SKIN: no evidence of rashes MSK: no evidence of trauma Vital Signs: 16:47 BP 133 / 88; Pulse 105; Resp 18 S; Temp 100(O); Pulse Ox 100% on R/A; Weight 77.11 kg; kc6 Height 5 ft. 10 in. (R); Pain 7/10; 18:00 BP 127 / 77; Pulse 103; Resp 19; Pulse Ox 98% on R/A; me1 18:02 Pain 3/10; me1 18:03 Pain 3/10; me1 19:00 BP 113 / 72; Pulse 109; Resp 18; Pulse Ox 97% ; me1 20:00 BP 126 / 90; Pulse 101; Resp 17; Pulse Ox 97% ; me1 21:00 BP 110 / 76; Pulse 98; Resp 16; Pulse Ox 97% ; me1 22:00 BP 115 / 74; Pulse 96; Resp 16; Pulse Ox 97% ; me1 22:00 BP 112 / 82; Pulse 97; Resp 16; Temp 98.6; Pulse Ox 99% ; me1 16:47 Body Mass Index 24.39 (77.11 kg, 177.8 cm) kc6 16:47 Pain Scale: Adult kc6 18:02 Pain Scale: Adult me1 18:03 Pain Scale: Adult me1 MDM: 16:49 Medical Screening Exam initiated ec2 16:56 Data reviewed: vital signs, nurses notes. ED course: Patient arrives today for ec2 evaluation of right flank pain. Examination yields right CVA TTP, abdominal TTP, tachycardia. Will obtain a septic workup, empirically treat for urinary pathology, obtain CT imaging. Differential includes urinary tract infection, pyelonephritis, intra-abdominal infection.. 17:54 ED course: CBC shows leukocytosis of 14.5. Metabolic profile shows renal dysfunction ec2 with creatinine 1.35 and GFR of 68. Lactate within normal ranges. Chest x-ray shows no acute process. Urine is infectious appearing.. 18:52 ED course: EKG independently reviewed and interpreted by me, shows sinus tachycardia, ec2 rate of 105, no acute ST segment elevations, intervals non-concerning. . 19:07 ED course: CT imaging shows hydronephrosis along with inflammation, will transfer for ec2 urologic care as he seeks urology at [facility] and is scheduled to have a stent removed tomorrow.. 20:10 ED course: I discussed the case w/ Pharm who agrees to accept the pt for transfer. ec2 pt updated regarding plan of care and agreeable. 02/24 16:54 Order name: Blood Culture Adult (2) ec2 02/24 16:54 Order name: CBC with Diff; Complete Time: 17:53 ec2 02/24 16:54 Order name: CMP; Complete Time: 17:53 ec2 12/03 16:54 Order name: Lactate w/ 2H reflex if indic.; Complete Time: 17:53 ec2 03 16:54 Order name: Protime (+inr); Complete Time: 17:53 ec2 /03 16:54 Order name: Ptt, Activated; Complete Time: 17:53 ec2 03 16:54 Order name: Urinalysis w/ reflexes; Complete Time: 17:25 ec2 03 16:58 Order name: Influenza Screen (a \T\ B); Complete Time: 18:15 ec2 03 16:58 Order name: SARS RAPID; Complete Time: 18:15 ec2 03 17:14 Order name: Urine Culture EDMS 02/24 16:54 Order name: Chest Single View XRAY; Complete Time: 17:53 ec2 02/24 18:20 Order name: Abdomen ; Complete Time: 18:50 EDMS 02/24 16:54 Order name: EKG; Complete Time: 16:54 ec2 02/24 16:54 Order name: Accucheck; Complete Time: 20:49 ec2 02/24 16:54 Order name: Cardiac monitoring; Complete Time: 20:49 ec2 02/24 16:54 Order name: EKG - Nurse/Tech; Complete Time: 20:49 ec2 02/24 16:54 Order name: IV Saline Lock - Large Bore; Complete Time: 17:18 ec2 02/24 16:54 Order name: Labs collected and sent; Complete Time: 17:18 ec2 02/24 16:54 Order name: O2 Per Protocol; Complete Time: 17:18 ec2 02/24 16:54 Order name: O2 Sat Monitoring; Complete Time: 17:18 ec2 02/24 16:54 Order name: Vital Signs; Complete Time: 16:58 ec2 Administered Medications: 17:37 Drug: Rocephin IV 1 grams IV at bolus once; Given slow IV push per pharmacy me1 instructions Route: IV; Rate: bolus; Site: right antecubital; 18:03 Follow up: Response: No adverse reaction; IV Status: Completed infusion; IV Intake: [id number] 17:38 Drug: Acetaminophen PO 1000 mg PO once Route: PO; me1 18:03 Follow up: Response: No adverse reaction nv1 17:38 Drug: NS 0.9% IV (30 ml/kg) 30 ml/kg IV at bolus once; Sepsis Protocol; to be given as me1 a bolus over 90 minutes Route: IV; Rate: bolus; Site: right antecubital; 20:49 Follow up: Response: No adverse reaction; IV Status: Completed infusion; IV Intake: me1 2313ml 17:38 Drug: morphine IVP or IV 4 mg IVP once over 4 mins Route: IVP; Infused Over: 4 mins; me1 Site: right antecubital; 18:03 Follow up: Pain 3/10 Adult; Response: No adverse reaction; Pain is decreased me1 17:38 Drug: Ketorolac IVP 15 mg IVP once Route: IVP; Site: right antecubital; me1 18:02 Follow up: Pain 3/10 Adult; Response: No adverse reaction; Pain is decreased me1 17:38 Drug: Ondansetron IVP 4 mg IVP once; over 2 minutes Route: IVP; Site: right antecubital;me1 18:03 Follow up: Response: No adverse reaction; Nausea is decreased me1 Disposition Summary: 02/25/24 19:08 Transfer Ordered Notes: Transfer Location: [facility] ec2 Reason: Higher level of care ec2 Condition: Stable(02/25/24 19:08) ec2 Problem: an ongoing problem ec2 Symptoms: have improved ec2 Accepting Physician: transferring doc(02/25/24 23:07) me1 Diagnosis - UTI/ Urinary tract infection, site not specified ec2 - Sepsis, unspecified organism ec2 - Ureteral Stent in place ec2 Forms: - Medication Reconciliation Form ec2 - SBAR form ec2 Signatures: Dispatcher [employer] Avani Calderon RN RN [id number] Regine Huber RN RN me1 Luis Laguna MD MD ec2 Corrections: (The following items were deleted from the chart) 16:54 16:54 Abdomen Pelvis W Con+CT.RAD.BRZ ordered. RANDIMS EDMS 17:44 17:44 Home ec2 ec2 17:44 17:44 Stable ec2 ec2 17:44 17:44 Dysuria ec2 ec2 23:07 19:08 transferring doc ec2 me1
--- NOTE | 2024-02-25 17:44 | ER ---
Nurse's Notes [facility] Name: Miguel Montes Age: 38 yrs Sex: Male : 1985 Arrival Date: 02/25/2024 Time: 16:35 Bed 26 Private MD: Diagnosis: UTI/ Urinary tract infection, site not specified;Sepsis, unspecified organism;Ureteral Stent in place Presentation: 02/24 16:47 Chief complaint: Patient states: right lower back pain and chills that started 2hrs kc6 RN MDS. pt reports having a nephrostomy tube and stent in place to the right kidney. Coronavirus screen: At this time, the client does not indicate any symptoms associated with coronavirus-19. Ebola Screen: No symptoms or risks identified at this time. Initial Sepsis Screen: Does the patient meet any 2 criteria? HR > 90 bpm. Does the patient have a suspected source of infection? No. Patient's initial sepsis screen is negative. Risk Assessment: Do you want to hurt yourself or someone else? Patient reports no desire to harm self or others. Onset of symptoms was February 25, 2024. 16:47 Method Of Arrival: Ambulatory kc6 16:47 Acuity: NAT 3 kc6 Historical: - Allergies: 16:48 No Known Allergies; kc6 - Home Meds: 16:48 None [Active]; kc6 - PMHx: 16:48 Kidney stone; kc6 - PSHx: 16:48 Right uretal stent; ear; nephrostomy tube (ear); kc6 - Immunization history:: Adult Immunizations up to date. - Infectious Disease History:: Denies. - Social history:: Smoking status: Patient denies any tobacco usage or history of. Screenin:00 [facility] ED Fall Risk Assessment (Adult) History of falling in the last 3 months, me1 including since admission No falls in past 3 months (0 pts) Confusion or Disorientation No (0 pts) Intoxicated or Sedated No (0 pts) Impaired Gait No (0 pts) Mobility Assist Device Used No (0 pt) Altered Elimination No (0 pt) Score/Fall Risk Level 0 - 2 = Low Risk Maintained a safe environment, Provided non-skid footwear, Hourly rounding (assess needs \T\ fall precautionary measures) done. Abuse screen: Denies threats or abuse. Nutritional screening: No deficits noted. Tuberculosis screening: No symptoms or risk factors identified. Assessment: 17:00 General: Appears uncomfortable, ill, well groomed, well developed, well nourished, me1 Behavior is calm, cooperative, appropriate for age, Reports right lower back pain and chills that started 2hrs RN MDS. pt reports having a nephrostomy tube and stent in place to the right kidney. Pain: Complains of pain in right low back Pain does not radiate. Pain currently is 8 out of 10 on a pain scale. Quality of pain is described as aching, sharp, Pain began suddenly, 2 hours ago. Is continuous. Neuro: Level of Consciousness is awake, alert, obeys commands, Oriented to person, place, time, situation, Appropriate for age. Cardiovascular: Patient's skin is warm and dry. Respiratory: Airway is patent Respiratory effort is even, unlabored, Respiratory pattern is regular, symmetrical. GI: No signs and/or symptoms were reported involving the gastrointestinal system. : Urine is cloudy, nephrostomy tube to right lower back Reports burning with urination, pain in right flank(s), lower quadrant(s) urinary frequency. EENT: No signs and/or symptoms were reported regarding the EENT system. Derm: Skin is intact, is healthy with good turgor, Skin is pink, warm \T\ dry. Musculoskeletal: No signs and/or symptoms reported regarding the musculoskeletal system. 22:40 Reassessment: Report given to LUCY Fernández at [facility] me1 Vital Signs: 16:47 BP 133 / 88; Pulse 105; Resp 18 S; Temp 100(O); Pulse Ox 100% on R/A; Weight 77.11 kg; kc6 Height 5 ft. 10 in. (R); Pain 7/10; 18:00 BP 127 / 77; Pulse 103; Resp 19; Pulse Ox 98% on R/A; me1 18:02 Pain 3/10; me1 18:03 Pain 3/10; me1 19:00 BP 113 / 72; Pulse 109; Resp 18; Pulse Ox 97% ; me1 20:00 BP 126 / 90; Pulse 101; Resp 17; Pulse Ox 97% ; me1 21:00 BP 110 / 76; Pulse 98; Resp 16; Pulse Ox 97% ; me1 22:00 BP 115 / 74; Pulse 96; Resp 16; Pulse Ox 97% ; me1 22:00 BP 112 / 82; Pulse 97; Resp 16; Temp 98.6; Pulse Ox 99% ; me1 16:47 Body Mass Index 24.39 (77.11 kg, 177.8 cm) kc6 16:47 Pain Scale: Adult kc6 18:02 Pain Scale: Adult me1 18:03 Pain Scale: Adult pr1 ED Course: 16:37 Patient arrived in ED. mr 16:38 Luis Laguna MD is Attending Physician. ec2 16:48 Triage completed. kc6 16:48 Arm band placed on. kc6 16:58 Regine Huber, LUCY is Primary Nurse. me1 17:00 Patient has correct armband on for positive identification. Bed in low position. Call me1 light in reach. Side rails up X2. Provided Education on: POC. Verbalized understanding. . Client placed on continuous cardiac and pulse oximetry monitoring. NIBP monitoring applied. Pulse ox on. NIBP on. 17:00 No provider procedures requiring assistance completed. me1 17:16 Initial lab(s) drawn, by pr, sent to lab. First set of blood cultures drawn by pr, pr1 Urine collected: clean catch specimen, cloudy. 17:18 CBC with Diff Sent. me1 17:18 CMP Sent. me1 17:18 Lactate w/ 2H reflex if indic. Sent. me1 17:18 Protime (+inr) Sent. me1 17:18 Ptt, Activated Sent. me1 17:18 Inserted saline lock: 22 gauge in right antecubital area, using aseptic technique. me1 17:29 Second set of blood cultures drawn by pr, COVID swab sent to lab. Flu and/or RSV swab me1 sent to lab. 17:30 Chest Single View XRAY In Process Unspecified. EDMS 17:37 SARS RAPID Sent. me1 17:37 Influenza Screen (a \T\ B) Sent. me1 17:38 Urine Culture Sent. me1 17:38 Blood Culture Adult (2) Sent. me1 18:39 Abdomen In Process Unspecified. EDMS 18:52 EKG done, by ED staff. tm3 20:51 Attending Physician role handed off by Luis Laguna MD sp4 20:51 Rl Ying MD is Attending Physician. sp4 23:06 Patient transferred, IV remains in place. me1 Administered Medications: 17:37 Drug: Rocephin IV 1 grams IV at bolus once; Given slow IV push per pharmacy me1 instructions Route: IV; Rate: bolus; Site: right antecubital; 18:03 Follow up: Response: No adverse reaction; IV Status: Completed infusion; IV Intake: [id number] 17:38 Drug: Acetaminophen PO 1000 mg PO once Route: PO; me1 18:03 Follow up: Response: No adverse reaction me1 17:38 Drug: NS 0.9% IV (30 ml/kg) 30 ml/kg IV at bolus once; Sepsis Protocol; to be given as me1 a bolus over 90 minutes Route: IV; Rate: bolus; Site: right antecubital; 20:49 Follow up: Response: No adverse reaction; IV Status: Completed infusion; IV Intake: me1 2313ml 17:38 Drug: morphine IVP or IV 4 mg IVP once over 4 mins Route: IVP; Infused Over: 4 mins; me1 Site: right antecubital; 18:03 Follow up: Pain 3/10 Adult; Response: No adverse reaction; Pain is decreased me1 17:38 Drug: Ketorolac IVP 15 mg IVP once Route: IVP; Site: right antecubital; me1 18:02 Follow up: Pain 3/10 Adult; Response: No adverse reaction; Pain is decreased me1 17:38 Drug: Ondansetron IVP 4 mg IVP once; over 2 minutes Route: IVP; Site: right antecubital;me1 18:03 Follow up: Response: No adverse reaction; Nausea is decreased me1 Medication: 17:00 VIS not applicable for this client. me1 Intake: 18:03 IV: 10ml; Total: 10ml. me1 20:49 IV: 2313ml; Total: 2323ml. me1 Outcome: 17:44 Discharge ordered by . ec2 19:08 ER care complete, transfer ordered by . ec2 23:06 Transferred by [facility] to [facility], Transfer form completed. me1 X-rays sent w/ patient. 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 Report called to LUCY Fernández by myself 23:06 Condition: stable 23:06 Instructed on the need for transfer, 23:07 Patient left the ED. me1 Addendum: 02/29/2024 13:04 Addendum: Culture Results: Positive urine culture. Phone call Attempt #1 Report faxed h b to [facility]. Signatures: Dispatcher [employer] EDIssa Nolen tm3 Tavo, Cassandra, Reg Reg mr Onesimo Sonia, RN RN Avani Albarado RN RN kc6 Rl Ying MD MD sp4 Regine Huber RN RN me1 Luis Laguna MD MD ec2 Corrections: (The following items were deleted from the chart) 02/24 16:59 16:47 Chief complaint: Patient states: right lower back pain and chills that started me1 2hrs RN MDS. pt reports having a nephrostomy tube and stent in place to the right kidney kc6 17:58 16:47 Chief complaint: Patient states: right lower back pain and chills that started me1 2hrs RN MDS. pt reports having a nephrostomy tube and stent in place to the right kidney me1
[2024-02-25 18:02] LABS: SARS-CoV-2 Antigen CONTROL BLUE LINE VIS/BG OK; SARS-CoV-2 Antigen Rapid Res Negative (Negative)
--- NOTE | 2024-02-25 18:48 | RAD REPORT ---
EXAMINATION: CT ABDOMEN AND PELVIS UROGRAM WITHOUT AND WITH CONTRAST CLINICAL INDICATION: ABD PAIN TECHNIQUE: CT abdomen and pelvis was performed, before and after the administration of IV contrast, a s per department protocol. Axial, sagittal and coronal reconstructions were obtained. One or more of the following dose reduction techniques were used: Automated exposure control, adjustment of the m A and/or kV according to patient size, and/or iterative reconstruction. Unless otherwise specified, incidental findings do not require dedicated imaging follow-up. COMPARISON: 11/30/2023 FINDINGS: LOWER CHEST: The visualized lung bases are clear. LIVER: Normal in size and contour. No focal lesion. No intra or extrahepatic biliary tree dilatation suspected. Grossly unremarkable gallbladder. SPLEEN: Normal size. No focal lesion. PANCREAS: No mass, ductal dilation, or sallie-pancreatic fluid. ADRENALS: Normal; no mass. KIDNEYS AND URETERS: Right double-J stent is in place and right-sided PCN also in place. Several smal l calculi are present inferior right kidney largest 5 mm. Mild hydronephrosis is seen. No perinephric fluid collections. No significant delay is seen and excretion of contrast material from t he right kidney. Mild uroepithelial thickening on the right. URINARY BLADDER: Normal in appearance. No suspicious mass or stone. GASTROINTESTINAL TRACT: No evidence of bowel obstruction, free air, significant free fluid or abscess . APPENDIX: Normal appendix. LYMPH NODES: No lymphadenopathy. REPRODUCTIVE ORGANS: No pathologic process. MUSCULOSKELETAL: Mild posterior disc bulging lower lumbar levels. ADDITIONAL FINDINGS: None. IMPRESSION: Right-sided double-J stent is in appropriate position. Right-sided PCN also appears appropriately pos itioned. There is mild right-sided hydronephrosis. Uroepithelial thickening is also seen on the right, mild. Chronic inflammation or infection can resul t in this appearance. Several stones are present inferior calyces right kidney.
[2024-02-26 05:57] VITALS: BP 112/82; TEMP 98.6; O2SAT 99
== END 2024-02-25 23:07 | disposition short-term general hospital (02) ==
LOC: ER 16:35
DX: N39.0 Urinary tract infection, site not specified (principal); A41.9 Sepsis, unspecified organism; Z96.0 Presence of urogenital implants; Z87.442 Personal history of urinary calculi; Z11.52 Encounter for screening for COVID-19
CPT/HCPCS: 96365; 87040 ×2; 87088; 85025; 81001; 87086; 36415; 87205; 85610; 83605; 85730; 87077 ×2; 87186 ×2; 80053; 87804 ×2; 74178; 71045; 96375; 99285; 96366; 87811; J2405; J7030; J0696

== ENCOUNTER 2024-03-13 18:47 | Emergency (ER) | payer BC ==
[2024-03-13] MEDS ORDERED: NA CHLORIDE 0.9% 2,000 ML ONE (19:44)
[2024-03-13] MEDS ORDERED: NA CHLORIDE 0.9% 500 ML ONE (19:44)
[2024-03-13 20:00] LABS: Albumin 3.4 g/dL (3.4-5.0); Anion Gap 9.2 mEq/L (5.0-15.0); Bilirubin Total 0.5 mg/dL (0.2-1.0); Globulin 3.4 g/dL (2.3-3.5); Potassium 3.2 mEq/L (3.5-5.1); Protein, Total 6.8 g/dL (6.4-8.2)
[2024-03-13 20:08] LABS: Absolute Basophils 0.1 K/uL (0-0.5); Absolute Lymphocytes (CBC) 1.1 K/uL (0.7-4.9); Absolute Monocytes 0.6 K/uL (0.1-1.3); Absolute Neutrophil 18.8 K/uL (1.8-8.0); Basophils % 0.3 % (0-1.3); Eosinophils % 0.2 % (0-4.4); Hemoglobin 14.7 g/dL (13.6-17.9); Lymphocytes % 5.4 % (15.3-44.8); MCH 28.4 pg (27.0-35.0); MCHC 34.1 g/dL (32.0-36.0); MCV 83.3 fL (80-100); MPV 7.7 fL (7.6-11.3); Monocytes % 2.8 % (3.3-12.3); Neutrophils % 91.3 % (41.7-73.7); Platelets 329 thou/uL (152-406); RBC Red Blood Cell Count 5.17 M/uL (4.33-5.43); Red Cell Distribution Width 13.6 % (12.1-15.2)
[2024-03-13] MEDS ORDERED: FENTANYL CITR 100 MCG/2 ML ONE (20:08)
[2024-03-13 20:10] LABS: PT Prothrombin Time 12.7 SECONDS (9.4-12.5); PTT, Activated Partial Thromb 32.3 SECONDS (24.3-36.9); Protime INR 1.14
[2024-03-13 20:13] LABS: Blood Morphology Comment NOT SEEN (NOT SEEN); Platelet Estimate ADEQ; White Blood Cell Scan OK (OK)
[2024-03-13 20:20] LABS: Specific Gravity 1.012 (1.005-1.030); Sqamous Epithelial <5 /HPF (None Seen); Urine Bacteria 20-50 /HPF (<20); Urine Bilirubin NEGATIVE (Negative); Urine Blood 2+ (Negative); Urine Clarity Extremely Turbid (Clear); Urine Color Colorless (Yellow); Urine Crystals Unidentified Few /HPF (None Seen); Urine Culture Reflex Order REFLEXED; Urine Glucose NEGATIVE (Negative); Urine Ketones NEGATIVE (Negative); Urine Microscopic Reflex YN ORDER UMIC; Urine Mucus Slight /HPF (None Seen); Urine Nitrite 2+ (Negative); Urine Protein 1+ (Negative); Urine RBC 21-50 /HPF (None Seen); Urine Urobilinogen Normal (Normal); Urine WBC >50 /HPF (<5); Urine WBC Clump Few /HPF (None Seen); Urine Yeast (Budding) Few /HPF (None Seen); Urine pH 6.5 (5.0-7.0)
[2024-03-13] MEDS ORDERED: CEFTRIAXONE 1000 MG/VIAL ONE (20:33)
[2024-03-13] MEDS ORDERED: MORPHINE 4 MG/ML SYR ONE (20:54)
[2024-03-13] MEDS ORDERED: POTASSIUM 25 MEQ EFFERV TAB ONE (20:54)
--- NOTE | 2024-03-13 21:36 | RAD REPORT ---
EXAMINATION: CT Abdomen Pelvis W/Wo Contrast CLINICAL INDICATION: Male, 38 years old. [facility] MAIN FLANK PAIN Bed Name: 6 TECHNIQUE: CT abdomen and pelvis was performed, before and after the administration of IV contrast, a s per department protocol. Axial, sagittal and coronal reconstructions were obtained. One or more of the following dose reduction techniques were used: Automated exposure control, adjustment of the m A and/or kV according to patient size, and/or iterative reconstruction. Unless otherwise specified, incidental findings do not require dedicated imaging follow-up. COMPARISON: 02/25/2024 FINDINGS: LOWER CHEST: The visualized lung bases are clear. LIVER: Normal in size and contour. No focal lesion. BILIARY SYSTEM: Gallbladder is decompressed limiting evaluation. No suspicious abnormalities. PANCREAS: No mass, ductal dilation, or sallie-pancreatic fluid. SPLEEN: Normal size. No focal lesion. ADRENALS: Normal; no mass. KIDNEYS AND URETERS: Normal size and contour. Right cutaneous nephrostomy tube in place. Ureteral rose mary nt has been removed. Residual small calculi at the right lower pole largest measuring 6 mm, probably stable allowing for differences in measurement plane. No hydronephrosis or hydroureter allow ing for mildly patulous appearance of the right pelvis, marginally improved since prior exam. No enhancing mass or filling defect within the renal pelvises. No suspicious filling defects within the ureters. URINARY BLADDER: Normal in appearance. No suspicious mass or stone. GASTROINTESTINAL TRACT: No evidence of bowel obstruction, free air, significant free fluid or abscess . APPENDIX: No inflammatory changes in region of appendix. LYMPH NODES: No lymphadenopathy. REPRODUCTIVE ORGANS: No pathologic process. MUSCULOSKELETAL: No acute or suspicious osseous abnormality. ADDITIONAL FINDINGS: Small left inguinal hernia containing fat. Mild prostatomegaly. IMPRESSION: Interval removal of right ureteral stent. Stable burden of small right lower pole calculi to 6 mm in size. No significant hydronephrosis. No other acute or significant abnormalities seen in the abdomen or pelvis. Stable incidental findings as above.
--- NOTE | 2024-03-13 22:14 | ER ---
Nurse's Notes [facility] Name: Miguel Montes Age: 38 yrs Sex: Male : 1985 Arrival Date: 03/13/2024 Time: 18:47 Bed 6 Private MD: Diagnosis: Severe sepsis without septic shock;UTI/ Urinary tract infection, site not specified Presentation: 03/13 19:00 Chief complaint: Patient states: right nephrostomy tube and patient started having cm10 cloudy urine with foul odor today. pt reports that he just doesn't feel well. pt also complaining of right sided flank pain. Coronavirus screen: Client denies travel out of the [place] in the last 14 days. Ebola Screen: Patient denies travel to an Ebola-affected area in the 21 days before illness onset. No symptoms or risks identified at this time. Initial Sepsis Screen: Does the patient meet any 2 criteria? HR > 90 bpm. Does the patient have a suspected source of infection? No. Patient's initial sepsis screen is negative. Risk Assessment: Do you want to hurt yourself or someone else? Patient reports no desire to harm self or others. Onset of symptoms was March 12, 2024. 19:00 Method Of Arrival: Ambulatory cm10 19:00 Acuity: NAT 3 cm10 Triage Assessment: 19:02 General: Appears in no apparent distress. uncomfortable, Behavior is calm, cooperative. cm10 Neuro: No deficits noted. Level of Consciousness is awake, alert, obeys commands, Oriented to person, place, time, situation, Appropriate for age. Respiratory: No deficits noted. Airway is patent Respiratory effort is even, unlabored, Respiratory pattern is regular, symmetrical. Historical: - Allergies: 19:02 No Known Allergies; cm10 - PMHx: 19:02 Kidney stone; cm10 19:02 Sepsis; cm10 - PSHx: 19:02 ear; Nephrostomy tube; Right uretal stent; cm10 - Immunization history:: Adult Immunizations up to date. - Infectious Disease History:: Denies. - Social history:: Smoking status: Patient denies any tobacco usage or history of. Screenin:23 [facility] ED Fall Risk Assessment (Adult) History of falling in the last 3 months, al5 including since admission No falls in past 3 months (0 pts) Confusion or Disorientation No (0 pts) Intoxicated or Sedated No (0 pts) Impaired Gait No (0 pts) Mobility Assist Device Used No (0 pt) Altered Elimination Yes (1 pt) Score/Fall Risk Level 0 - 2 = Low Risk Oriented to surroundings, Maintained a safe environment, Hourly rounding (assess needs \T\ fall precautionary measures) done. 19:23 Abuse screen: Denies threats or abuse. Denies injuries from another. Nutritional al5 screening: No deficits noted. Tuberculosis screening: No symptoms or risk factors identified. Assessment: 19:20 General: Appears in no apparent distress. uncomfortable, Behavior is calm, cooperative. al5 Pain: Complains of pain in right mid back Pain currently is 8 out of 10 on a pain scale. Neuro: Level of Consciousness is awake, alert, obeys commands, Oriented to person, place, time, situation. Cardiovascular: Capillary refill < 3 seconds Patient's skin is warm and dry. Respiratory: Airway is patent Respiratory effort is even, unlabored, Respiratory pattern is regular, symmetrical. GI: No signs and/or symptoms were reported involving the gastrointestinal system. Abdomen is flat, non-distended. : has a R nephrostomy tube Reports pain in right flank(s). EENT: No signs and/or symptoms were reported regarding the EENT system. Derm: Skin is intact, is healthy with good turgor, Skin is pink, warm \T\ dry. normal. Musculoskeletal: No signs and/or symptoms reported regarding the musculoskeletal system. 21:03 Reassessment: Patient appears in no apparent distress at this time. No changes from al5 previously documented assessment. Patient and/or family updated on plan of care and expected duration. Pain level reassessed. Patient is alert, oriented x 3, equal unlabored respirations, skin warm/dry/pink. 23:20 Reassessment: Patient appears in no apparent distress at this time. No changes from al5 previously documented assessment. Patient and/or family updated on plan of care and expected duration. Pain level reassessed. Patient is alert, oriented x 3, equal unlabored respirations, skin warm/dry/pink. 03/14 00:26 Reassessment: Patient appears in no apparent distress at this time. No changes from al5 previously documented assessment. Patient and/or family updated on plan of care and expected duration. Pain level reassessed. Patient is alert, oriented x 3, equal unlabored respirations, skin warm/dry/pink. 01:03 Reassessment: report given to lucy diaz at [facility]. al5 01:37 Reassessment: Patient appears in no apparent distress at this time. No changes from al5 previously documented assessment. Patient and/or family updated on plan of care and expected duration. Pain level reassessed. Patient is alert, oriented x 3, equal unlabored respirations, skin warm/dry/pink. Vital Signs: 03/13 19:00 BP 118 / 78; Pulse 126; Resp 18; Temp 99.2(O); Pulse Ox 98% on R/A; Weight 77.11 kg; cm10 Height 5 ft. 9 in. ; Pain 09/01; 19:07 BP 118 / 78; Pulse 121; Resp 18; Pulse Ox 100% on R/A; al5 19:15 BP 114 / 74; Pulse 113; Resp 19; Pulse Ox 96% on R/A; al5 19:30 BP 116 / 69; Pulse 83; Resp 17; Pulse Ox 96% on R/A; al5 19:45 BP 109 / 68; Pulse 115; Resp 17; Pulse Ox 97% on R/A; al5 20:00 BP 110 / 69; Pulse 104; Resp 16; Pulse Ox 99% ; al5 20:30 BP 122 / 75; Pulse 58; Resp 18; Pulse Ox 97% on R/A; al5 20:45 BP 111 / 76; Pulse 91; Resp 18; Pulse Ox 100% on R/A; al5 21:13 BP 109 / 82; Pulse 92; Resp 16; Pulse Ox 98% on R/A; al5 21:15 BP 111 / 91; Pulse 96; Resp 16; Pulse Ox 97% on R/A; al5 21:30 BP 107 / 74; Pulse 81; Resp 18; Pulse Ox 100% on R/A; al5 23:00 BP 108 / 61; Pulse 91; Resp 18; Pulse Ox 100% on R/A; al5 03/14 00:00 BP 100 / 57; Pulse 97; Resp 17; Pulse Ox 96% on R/A; al5 01:00 BP 112 / 58; Pulse 95; Resp 17; Pulse Ox 95% on R/A; al5 01:30 BP 107 / 61; Pulse 87; Resp 17; Pulse Ox 97% on R/A; al5 03/13 19:00 Body Mass Index 25.10 (77.11 kg, 175.26 cm) cm10 03/13 19:00 Pain Scale: Adult cm10 ED Course: 03/13 18:50 Patient arrived in ED. sj2 18:54 Pedrito Strange PA is PHCP. cp 18:54 Estelita Moreno MD is Attending Physician. cp 19:02 Triage completed. cm10 19:02 Arm band placed on right wrist. Patient placed in an exam room, on a stretcher, on cm10 pulse oximetry. 19:07 Saranya Colon, LUCY is Primary Nurse. al5 19:24 Patient has correct armband on for positive identification. Bed in low position. Call al5 light in reach. Side rails up X2. Provided Education on: plan of care. 19:26 No provider procedures requiring assistance completed. Inserted saline lock: 20 gauge al5 in right antecubital area, using aseptic technique. Blood collected. Flushed with 10 mL NS. 21:07 CT Abd/Pelvis- W/WO Contrast In Process Unspecified. EDMS 22:47 initiated transfer with [facility]. [facility] 03/14 01:10 pt was accepted to [facility] [address] [place] [address] 81. Number for nurse to nurse report [facility] [phone]. Accepting Cooper Donaldson \T\ 0038. [facility] gave acceptance \T\ 0110. Due to multiple calls between [facility] and [facility] a delay in transfer occurred. 01:38 Patient transferred, IV remains in place. al5 Administered Medications: 03/13 20:00 Drug: NS 0.9% IV (30 ml/kg) 30 ml/kg IV at bolus once; Sepsis Protocol; to be given as al5 a bolus over 90 minutes Route: IV; Rate: bolus; Site: right antecubital; 20:15 Follow up: Response: No adverse reaction dd2 21:30 Follow up: IV Status: Completed infusion; IV Intake: 2400ml dd2 20:20 Drug: fentaNYL (PF) IVP 25 mcg IVP once Route: IVP; Site: right antecubital; al5 21:01 Follow up: Response: No adverse reaction; Pain is unchanged, physician notified al5 20:39 Drug: Rocephin IV 1 grams IV at calculated rate once; Given slow IV push per pharmacy al5 instructions Route: IV; Rate: calculated rate; Site: right antecubital; 03/14 00:36 Follow up: Response: No adverse reaction al5 00:37 Follow up: IV Status: Completed infusion; IV Intake: 10ml al5 03/13 20:49 CANCELLED (Physician Discretion): morphineor iv 4 mg IVP once over 4 mins cp 21:00 Drug: morphine IVP or IV 4 mg IVP once over 4 mins Route: IVP; Infused Over: 4 mins; al5 Site: right antecubital; 03/14 00:38 Follow up: Response: No adverse reaction; Pain is decreased al5 03/13 21:00 Drug: Potassium PO Effervescent Tablet 50 mEq PO once; dissolve in 4 ounces of water or al5 juice Route: PO; 03/14 00:38 Follow up: Response: No adverse reaction al5 00:19 Not Given (Physician Discretion): potassiumeffervescent tablet 50 meq PO once; dissolve al5 in 4 ounces of water or juice 00:35 Drug: metoCLOPramide IVP 10 mg IVP once; over 1 to 2 minutes Route: IVP; Site: right al5 antecubital; 01:37 Follow up: Response: No adverse reaction; Nausea is decreased al5 Medication: 03/13 20:05 VIS not applicable for this client. al5 Intake: 21:30 IV: 2400ml; Total: 2400ml. dd2 03/14 00:37 IV: 10ml; Total: 2410ml. al5 Outcome: 03/13 22:14 ER care complete, transfer ordered by MD. oreilly 03/14 01:38 Transferred by [facility]. Transfer form completed. al5 Condition: stable Instructed on the need for transfer, 01:38 Patient left the ED. al5 Addendum: 03/18/2024 17:18 Addendum: Culture Results: Positive urine culture. Phone call Attempt #1 pt was i w transferred to [facility], attempt to fax report, pt was discharged home. Signatures: Dispatcher [employer] EDMS Angelia Gray RN RN iw Page, Corey, PA PA cp Martinez, Clarissa, RN RN cm10 Renetta Nazario Amanda, RN RN al5 KAMILLE CORONA RN RN dd2 [facility]
--- NOTE | 2024-03-13 22:14 | EDPHYS ---
Physician Documentation [facility] Name: Miguel Montes Age: 38 yrs Sex: Male : 1985 Arrival Date: 03/13/2024 Time: 18:47 Bed 6 Private MD: ED Physician Estelita Moreno HPI: 03/13 19:20 This 38 yrs old Male presents to ER via Ambulatory with complaints of Urinary Problem. cp 19:20 Patient is a 38-year-old male with past medical history significant for right cp nephrostomy tube placement. He reports noticing chills, fever that started this morning and has been progressively getting worse. He reports cloudy urine from his right nephrostomy tube and some dysuria. Historical: - Allergies: 19:02 No Known Allergies; cm10 - PMHx: 19:02 Kidney stone; cm10 19:02 Sepsis; cm10 - PSHx: 19:02 ear; Nephrostomy tube; Right uretal stent; cm10 - Immunization history:: Adult Immunizations up to date. - Infectious Disease History:: Denies. - Social history:: Smoking status: Patient denies any tobacco usage or history of. ROS: 19:25 Constitutional: Positive for chills, fever, cp 19:25 Eyes: Negative for injury, pain, redness, and discharge, cp 19:25 ENT: Negative for drainage from ear(s), ear pain, sore throat, difficulty swallowing, difficulty handling secretions, 19:25 Cardiovascular: Negative for chest pain, palpitations, 19:25 Respiratory: Negative for cough, shortness of breath, wheezing, 19:25 Abdomen/GI: Negative for vomiting, diarrhea, constipation, 19:25 Back: Positive for flank pain, on the right, 19:25 : Positive for burning with urination, 19:25 Neuro: Negative for altered mental status, 19:25 All other systems are negative, Exam: 19:25 Head/Face: Normocephalic, atraumatic. cp 19:25 Constitutional: The patient appears in no acute distress, alert, awake, non-diaphoretic, non-toxic, well developed, well nourished, 19:25 Eyes: Periorbital structures: appear normal, Conjunctiva: normal, no exudate, no injection, Sclera: no appreciated abnormality, Lids and lashes: appear normal, bilaterally, 19:25 ENT: External ear(s): are unremarkable, Nose: is normal, Mouth: Lips: moist, Oral mucosa: moist, Posterior pharynx: Airway: no evidence of obstruction, patent, 19:25 Neck: ROM/movement: is normal, is supple, without pain, no range of motions limitations, no meningismus, 19:25 Chest/axilla: Inspection: normal, 19:25 Cardiovascular: Rate: tachycardic, Rhythm: regular, 19:25 Respiratory: the patient does not display signs of respiratory distress, Respirations: normal, no use of accessory muscles, no retractions, labored breathing, is not present, Breath sounds: are clear throughout, no decreased breath sounds, no stridor, no wheezing, 19:25 Abdomen/GI: Inspection: abdomen appears normal, Palpation: abdomen is soft and non-tender, in all quadrants, 19:25 Back: CVA tenderness, that is mild, is noted on the right, right nephrostomy tube in place, 19:25 Neuro: Orientation: to person, place \T\ time. Mentation: is normal, Motor: moves all fours, strength is normal, 19:57 ECG was reviewed by the Attending Physician. cp Vital Signs: 19:00 BP 118 / 78; Pulse 126; Resp 18; Temp 99.2(O); Pulse Ox 98% on R/A; Weight 77.11 kg; cm10 Height 5 ft. 9 in. ; Pain 6/10; 19:07 BP 118 / 78; Pulse 121; Resp 18; Pulse Ox 100% on R/A; al5 19:15 BP 114 / 74; Pulse 113; Resp 19; Pulse Ox 96% on R/A; al5 19:30 BP 116 / 69; Pulse 83; Resp 17; Pulse Ox 96% on R/A; al5 19:45 BP 109 / 68; Pulse 115; Resp 17; Pulse Ox 97% on R/A; al5 20:00 BP 110 / 69; Pulse 104; Resp 16; Pulse Ox 99% ; al5 20:30 BP 122 / 75; Pulse 58; Resp 18; Pulse Ox 97% on R/A; al5 20:45 BP 111 / 76; Pulse 91; Resp 18; Pulse Ox 100% on R/A; al5 21:13 BP 109 / 82; Pulse 92; Resp 16; Pulse Ox 98% on R/A; al5 21:15 BP 111 / 91; Pulse 96; Resp 16; Pulse Ox 97% on R/A; al5 21:30 BP 107 / 74; Pulse 81; Resp 18; Pulse Ox 100% on R/A; al5 23:00 BP 108 / 61; Pulse 91; Resp 18; Pulse Ox 100% on R/A; al5 03/14 00:00 BP 100 / 57; Pulse 97; Resp 17; Pulse Ox 96% on R/A; al5 01:00 BP 112 / 58; Pulse 95; Resp 17; Pulse Ox 95% on R/A; al5 01:30 BP 107 / 61; Pulse 87; Resp 17; Pulse Ox 97% on R/A; al5 03/13 19:00 Body Mass Index 25.10 (77.11 kg, 175.26 cm) cm10 03/13 19:00 Pain Scale: Adult cm10 MDM: 03/13 22:14 Medical Screening Exam initiated cp 22:15 Data reviewed: vital signs, nurses notes, lab test result(s), radiologic studies, CT cp scan. 22:15 Differential diagnosis: UTI, sepsis, pyelonephritis. I considered the following cp discharge prescriptions or medication management in the emergency department Medications were administered in the Emergency Department. See MAR. Counseling: I had a detailed discussion with the patient and/or guardian regarding the historical points, exam findings, and any diagnostic results supporting the discharge/admit diagnosis, lab results, radiology results. Response to treatment: the patient's symptoms have mildly improved after treatment. ED course: Patient requests transfer to [facility] for continuity of care. 23:59 ED course: spoke with DR Bazan, urologist, who will consult and requests hospitalist cp consultation. 03/13 19:13 Order name: Blood Culture Adult (2) cp 03/13 19:13 Order name: CBC with Diff; Complete Time: 20:15 cp 03/13 23:58 Interpretation: Normal except: WBC 20.60; NEUT A 18.8; MN% 2.8; LYM% 5.4; CONNOR% 91.3. cp 03/13 19:13 Order name: CMP; Complete Time: 20:02 cp 03/13 20:02 Interpretation: Normal except: K 3.2; GLUC 166; BUN 21; GFR 73. cp 03/13 19:13 Order name: Lactate w/ 2H reflex if indic.; Complete Time: 20:13 03/13 20:13 Interpretation: Reviewed. 03/13 19:13 Order name: Protime (+inr); Complete Time: 20:12 03/13 20:12 Interpretation: Reviewed. cp 03/13 19:13 Order name: Ptt, Activated; Complete Time: 20:12 03/13 19:13 Order name: Urinalysis w/ reflexes; Complete Time: 20:48 03/13 23:58 Interpretation: Normal except: [facility] Extremely Turbid; UBLD 2+; UPROT 1+; UNIT 2+; UESTR cp 500; UWBC >50; URBC 21-50; UBACT 20-50; UWBC Clump Few; BYST Few. 03/13 20:02 Order name: Glucose, Ancillary Testing; Complete Time: 20:12 EDSD 03/13 20:12 Interpretation: Reviewed. 03/13 20:04 Order name: Glucose, Ancillary Testing EDSD 03/13 20:13 Order name: CBC Smear Scan; Complete Time: 20:15 EDSD 03/13 20:14 Order name: Ghost Lactate-NO COLLECT Timer; Complete Time: 23:56 EDMS 03/13 20:35 Order name: Urine Culture EDMS 03/14 01:27 Order name: Lactate Sepsis 2 HR Follow-up EDMS 03/13 20:13 Order name: CT Abd/Pelvis- W/WO Contrast; Complete Time: 21:41 03/13 19:13 Order name: Accucheck; Complete Time: 19:59 03/13 19:13 Order name: Cardiac monitoring; Complete Time: 19:41 03/13 19:13 Order name: EKG - Nurse/Tech; Complete Time: 19:59 cp 03/13 19:13 Order name: IV Saline Lock - Large Bore; Complete Time: 19:34 03/13 19:13 Order name: Labs collected and sent; Complete Time: 19:41 03/13 19:13 Order name: O2 Per Protocol; Complete Time: 19:34 cp 03/13 19:13 Order name: O2 Sat Monitoring; Complete Time: 19:34 03/13 19:13 Order name: Vital Signs; Complete Time: 19:34 cp EC:57 Rate is 114 beats/min. Rhythm is regular. [place] interval is normal. QRS interval is cp normal. QT interval is normal. T waves are Inverted in lead aVR. Interpreted by me. Reviewed by me. Administered Medications: 20:00 Drug: NS 0.9% IV (30 ml/kg) 30 ml/kg IV at bolus once; Sepsis Protocol; to be given as al5 a bolus over 90 minutes Route: IV; Rate: bolus; Site: right antecubital; 20:15 Follow up: Response: No adverse reaction dd2 21:30 Follow up: IV Status: Completed infusion; IV Intake: 2400ml dd2 20:20 Drug: fentaNYL (PF) IVP 25 mcg IVP once Route: IVP; Site: right antecubital; al5 21:01 Follow up: Response: No adverse reaction; Pain is unchanged, physician notified al5 20:39 Drug: Rocephin IV 1 grams IV at calculated rate once; Given slow IV push per pharmacy al5 instructions Route: IV; Rate: calculated rate; Site: right antecubital; 03/14 00:36 Follow up: Response: No adverse reaction al5 00:37 Follow up: IV Status: Completed infusion; IV Intake: 10ml al5 03/13 20:49 CANCELLED (Physician Discretion): morphineor iv 4 mg IVP once over 4 mins cp 21:00 Drug: morphine IVP or IV 4 mg IVP once over 4 mins Route: IVP; Infused Over: 4 mins; al5 Site: right antecubital; 03/14 00:38 Follow up: Response: No adverse reaction; Pain is decreased al5 03/13 21:00 Drug: Potassium PO Effervescent Tablet 50 mEq PO once; dissolve in 4 ounces of water or al5 juice Route: PO; 03/14 00:38 Follow up: Response: No adverse reaction al5 00:19 Not Given (Physician Discretion): potassiumeffervescent tablet 50 meq PO once; dissolve al5 in 4 ounces of water or juice 00:35 Drug: metoCLOPramide IVP 10 mg IVP once; over 1 to 2 minutes Route: IVP; Site: right al5 antecubital; 01:37 Follow up: Response: No adverse reaction; Nausea is decreased al5 Disposition Summary: 03/13/24 22:14 Transfer Ordered Notes: Transfer Location: [facility] cp Reason: Higher level of care cp Condition: Stable cp Problem: new cp Symptoms: have improved cp Accepting Physician: Doctor(03/14/24 01:38) al5 Diagnosis - Severe sepsis without septic shock cp - UTI/ Urinary tract infection, site not specified cp Forms: - Medication Reconciliation Form cp - SBAR form cp Signatures: Dispatcher [employer] EDMS Pedrito Strange PA PA cp Griselda Woodson RN RN cm10 Saranya Colon RN RN al5 KAMILLE CORONA RN dd2 Corrections: (The following items were deleted from the chart) 03/13 19:14 19:14 BLOOD CULTURE*+BA.LAB.BRZ ordered. EDMS EDMS 19:14 19:14 CBC+H.LAB.BRZ ordered. EDMS EDMS 19:14 19:14 COMPREHENSIVE METABOLIC PANEL+C.LAB.BRZ ordered. EDMS EDMS 19:14 19:14 LACTATE+C.LAB.BRZ ordered. EDMS EDMS 19:14 19:14 PROTIME (+INR)+COAG.LAB.BRZ ordered. EDMS EDMS 19:14 19:14 PTT, ACTIVATED+COAG.LAB.BRZ ordered. EDMS EDMS 19:14 19:14 Urinalysis+U.LAB.BRZ ordered. EDMS EDMS 19:14 19:14 Urinalysis+U.LAB.BRZ ordered. EDMS EDMS 20:49 20:49 morphine IVP or IV 4 mg IVP once over 4 mins ordered. cp cp 23:58 20:15 Normal except: WBC 20.60. cp cp 03/14 01:38 03/13 22:14 Doctor cp al5
[2024-03-14] MEDS ORDERED: METOCLOPRAMIDE 10 MG/2mL INJ ONE (00:17)
[2024-03-14 01:52] VITALS: TEMP 99.2
[2024-03-14 02:18] VITALS: BP 107/61; O2SAT 97
--- NOTE | 2024-03-15 13:07 | EKG ---
Test Date: 2024-03-13 Test Time: 19:50:24 Cotton Presser: MARIAM MEASUREMENT RESULTS: Intervals: Rate: 114 MN: 166 QRSD: 90 QT: 322 QTc: 443 [place]: P: 39 MN: 166 QRS: 44 T: 38 INTERPRETIVE STATEMENTS: Sinus tachycardia with frequent premature ventricular complexes Otherwise normal ECG Compared to ECG 02/25/2024 18:50:29 No significant changes Electronically Signed On 03-15-24 13:04:30 SUSTAINABLE DESIGN CONSULTANT by Eddie Valles
== END 2024-03-14 01:38 | disposition short-term general hospital (02) ==
LOC: ER 18:47
DX: N39.0 Urinary tract infection, site not specified (principal); R65.20 Severe sepsis without septic shock; Z93.6 Other artificial openings of urinary tract status; Z87.442 Personal history of urinary calculi
CPT/HCPCS: 96365; 93005; 87040 ×2; 87088; 85025; 81001; 87086; 36415; 85610; 82947; 83605 ×2; 85730; 87077; 87186; 80053; 74178; 96375; 99285; 96366; Q9967; J2765; J3010; J7040; J7030; J0696